=== PATIENT | female | born 1955 | race Caucasian/White ===

== ENCOUNTER 2016-11-09 11:39 | Observation (INO) | payer MEDICARE ==
[2016-11-09] MEDS ORDERED: Sodium Chloride 0.9% 1000 ML 1,000 ML IV STA (11:58)
[2016-11-09] MEDS ORDERED: Sodium Chloride 0.9% 1000 ML 1,000 ML ONE (12:03)
--- NOTE | 2016-11-09 12:06 | ERPHSYRPT ---
- History of Present Illness Time Seen by Provider: 11/09/16 12:01 Source: patient Exam Limitations: no limitations Patient Subjective Stated Complaint: PT REPORTS DIZZINESS BEGINNING MON- TINLGING TO BILATERAL HANDS BEGAN MONDAY-COUGH BEGINNING 4 DAYS AGO-REPORTS UNABLE TO CHECK BLOOD SUGAR AT HOME DUE TO BROKEN MACHINE-DECREASE IN APPETITE- REPORTS DIARRHEA-DENIES VOMITING-REPORTS NASUEA-PT REPORTS A SORE ON HER LEFT BIG TOE-NO DRAINAGE-REPORTS SWELLING ET PAIN TO BILATERAL KNEES Triage Nursing Assessment: PT PALE WARM ET DRY-A & O X 3-ANSWERING ALL QUESTIONS APPROPRIATELY-MOVING ALL EXTREMITES WITH EASE-PT OFF BALANCE UPON STANDING-PUPILS PERRL-RESP EASY ET NONLABORED-LUNGS CLEAR ET EQUAL-BOWEL SOUNDS HYPERACTIVE WITH NO TENDERNESS TO PALP-PT DENIES ABD PAIN-NO DRAINAGE OR REDNESS NOTED TO LEFT TOE AT THIS TIME Physician History: 61-year-old white female who arrives with complaints of feeling dizzy like the room spins spinning paresthesias in both hands cramping of both hands and cough symptoms since Monday 4 days ago. Patient apparently initially presented to [facility] but sent to the emergency room patient has had not had any fevers. Patient is able to move all extremities. She complains of tenderness in her right great toe. Past medical history includes diabetes, hypothyroidism, high blood pressure, depression Past surgical history includes tubal ligation Social history patient denies tobacco or alcohol use . Timing/Duration: day(s) (4 days) Severity: moderate Modifying Factors: Worsens With: cold therapy, eating, immobilization, medication, movement, rest, acetaminophen, ibuprofen Associated Symptoms: cough, loss of appetite, malaise, other (paresthesias and cramps bilateral hands), No nausea, No vomiting, No abdominal pain, No shortness of breath, No heartburn, No diaphoresis, No chills, No chest pain, No fever, No headaches, No rash, No syncope, No seizure, No weakness Allergies/Adverse Reactions: No Known Drug Allergies Allergy (Verified 11/09/16 11:52) Home Medications: Glimepiride 4 mg [Amaryl 4 mg] 4 mg PO DAILY 08/10/13 [History] Hydrocodone Bit/Acetaminophen [Hydrocodon-Acetaminophen 5-500] 1 each PO QID PRN PRN 08/10/13 [History] Levothyroxine Sodium 75 Mcg [Synthroid 75 Mcg] 88 mcg PO DAILY 08/10/13 [ History] Metoprolol Tartrate 25 mg [Lopressor 25MG Tab] 100 mg PO DAILY 08/10/13 [ History] Dulaglutide [Trulicity] 0.75 mg SQ WEEKLY 11/09/16 [History] Hx Tetanus, Diphtheria Vaccination/Date Given: Yes Hx Influenza Vaccination/Date Given: Yes (2015) Hx Pneumococcal Vaccination/Date Given: No Immunizations Up to Date: Yes - Review of Systems Constitutional: Malaise, No Fever, No Chills Eyes: No Symptoms, No Discharge, No Eye Pain, No Eye Redness, No Itchy, No Photophobia, No Tearing, No Vision Changes, No Double Vision, No Foreign Body Sensation Ears, Nose, & Throat: No Symptoms, No Ear Pain, No Ear Discharge, No Hearing Changes, No Tinnitus, No Nose Pain, No Nose Congestion, No Nose Discharge, No Sinus Drainage, No Epistaxis, No Mouth Pain, No Mouth Swelling, No Loose Teeth, No Throat Pain, No Throat Swelling, No Hoarse, No Painful Swallowing, No Snoring , No Stridor Respiratory: Cough, No Cyanosis, No Dyspnea, No Dyspnea on Exertion (HANSON), No Stridor, No Wheezing Cardiac: No Chest Pain, No Edema, No Syncope Abdominal/Gastrointestinal: Appetite Changes (decreased appetite), No Abdominal Pain, No Nausea, No Vomiting, No Diarrhea Genitourinary Symptoms: No Dysuria Musculoskeletal: Other (cramping both hands) Skin: Other (patient with pain in right great toe), No Rash Neurological: Dizziness, Parasthesia (paresthesias of both hands), Vertigo, No Focal Weakness, No Gait Changes, No Headache, No Irritability, No Lethargy, No Paralysis, No Seizure, No Sensory Changes, No Speech Changes, No Tics, No Tremors Psychological: No Symptoms Endocrine: No Symptoms All Other Systems: Reviewed and Negative - Past Medical History Pertinent Past Medical History: Yes Cardiac History: Hypertension Endocrine Medical History: Diabetes Type II, Hypothyroidism Psycho-Social History: Depression - Past Surgical History Past Surgical History: Yes Female Surgical History: Tubal Ligation - Social History Smoking Status: Never smoker Exposure to second hand smoke: No Drug Use: none Patient Lives Alone: Yes - Nursing Vital Signs Nursing Vital Signs: Initial Vital Signs Temperature 97.5 F Temperature Source Oral Pulse Rate 90 Respiratory Rate 18 Blood Pressure [] 170/81 Pain Intensity 0 - Physical Exam General Appearance: mild distress, other (well-developed well-nourished white female alert oriented 3 mild distress) Eye Exam: PERRL/EOMI, eyes nml inspection Ears, Nose, Throat Exam: normal ENT inspection, TMs normal, pharynx normal, moist mucous membranes Neck Exam: normal inspection, non-tender, supple, full range of motion Respiratory Exam: normal breath sounds, lungs clear, No respiratory distress Cardiovascular Exam: regular rate/rhythm, normal heart sounds, normal peripheral pulses Gastrointestinal/Abdomen Exam: soft, normal bowel sounds, No tenderness, No mass Back Exam: normal inspection, normal range of motion, No CVA tenderness, No vertebral tenderness Extremity Exam: normal inspection, normal range of motion, pelvis stable Neurologic Exam: alert, oriented x 3, cooperative, normal mood/affect, nml cerebellar function, nml station & gait, sensation nml, other (carboy filler equal and symmetrical 5 over 5 finger-nose within normal limits speech normal no pronator drift), No motor deficits, No sensory deficit Skin Exam: normal color, warm, dry, No rash Lymphatic Exam: No adenopathy SpO2 Interpretation: normal (97%) SpO2: 97 Oxygen Delivery: Room Air - Course Nursing assessment & vital signs reviewed: Yes EKG Interpreted by Me: RATE (84bpm), NORMAL AXIS, Other (EKG: Sinus arrhythmia 84 bpm, normal axis, no acute ST or T wave changes essentially normal EKG) - Radiology Exams Chest X-ray Interpretation: Discussed w/ radiologist, No Pneumonia, No Pneumothorax - CT Exams Head CT Interpretation: Discussed w/radiologist (head CT: No intracranial abnormalities para nasal sinus disease) Ordered Tests: Active Orders 24 hr Category Date Time Status Accucheck STAT Care 11/09/16 11:58 Active EKG-ER Only STAT Care 11/09/16 11:58 Active IV Insertion STAT Care 11/09/16 11:58 Active Orthostatic Vital Signs STAT Care 11/09/16 11:58 Active CHEST 1 VIEW (PORTABLE) Stat Exams 11/09/16 11:59 Completed HEAD WITHOUT CONTRAST [CT] Stat Exams 11/09/16 11:59 Completed CBC W DIFF Stat Lab 11/09/16 11:50 Completed CMP Stat Lab 11/09/16 11:50 Completed Lactic Acid Urgent Lab 11/09/16 12:08 Completed TROPONIN Stat Lab 11/09/16 11:50 Completed UA Stat Lab 11/09/16 11:59 Ordered VENOUS BLOOD GAS Urgent Lab 11/09/16 12:08 Completed Transfer Order Routine Transfer 11/09/16 13:26 Ordered Medication Summary Discontinued Medications Generic Name Dose Route Start Last Admin Trade Name Janes PRN Reason Stop Dose Admin Aspirin 162 mg 11/09/16 13:24 11/09/16 13:29 Baby Aspirin 81 Mg Chew PO 11/09/16 13:25 162 mg STAT ONE Administration Aspirin Confirm 11/09/16 13:27 Baby Aspirin 81 Mg Chew Administered 11/09/16 13:28 Dose 162 mg .ROUTE .STK-MED ONE Sodium Chloride 1,000 mls @ 999 mls/hr 11/09/16 11:58 11/09/16 12:07 Sodium Chloride 0.9% 1000 Ml IV 11/09/16 12:58 999 mls/hr .Q1H1M STA Administration Sodium Chloride Confirm 11/09/16 12:03 Sodium Chloride 0.9% 1000 Ml Administered 11/09/16 12:04 Dose 1,000 mls @ ud .ROUTE .STK-MED ONE Lab/Rad Data: Laboratory Result Diagrams 11/09/16 11:50 11/09/16 11:50 Laboratory Results 11/09/16 11/09/16 11/09/16 Range/Units 12:08 12:08 11:50 WBC (4.0-10.5) K/mm3 RBC (4.1-5.4) M/mm3 Hgb (12.0-16.0) gm/dl Hct (35-47) % MCV (78-100) fl MCH (26-32) pg MCHC (32-36) g/dl RDW (11.5-14.0) % Plt Count (150-450) K/mm3 MPV (6-9.5) fl Gran % (36.0-66.0) % Lymphocytes % (24.0-44.0) % Monocytes % (0.0-12.0) % Eosinophils % (0.00-5.0) % Basophils % (0.0-0.4) % Basophils # (0-0.4) VBG pH 7.40 (7.32-7.42) VBG pCO2 at Pat Temp 47 (42-55) mm/Hg VBG pO2 at Pat Temp 40 (25-40) mm/Hg VBG HCO3 29.1 H* (22-28) meq/L VBG O2 Sat (Jodi) 74.3 L (95-100) VBG Base Excess 3.5 H (-2.0-2.0) VBG Hemoglobin 13.4 VBG Carboxyhemoglobin 0.8 (0.0-6.9) % T HGB POC Potassium 3.7 (3.5-5.1) Sodium 139 (136-145) mEq/L Potassium 3.8 (3.5-5.1) mEq/L Chloride 102 (98-107) mEq/L Carbon Dioxide 25.8 (21-32) mEq/L Anion Gap 15.2 H (5-15) MEQ/L BUN 11 (9-20) mg/dL Creatinine 1.00 (0.55-1.30) mg/dl Estimated GFR 60 ML/MIN Glucose 150 H (70-110) MG/DL Lactic Acid 1.2 (0.4-2.0) Calcium 8.9 (8.5-10.1) mg/dL Total Bilirubin 0.3 (0.2-1.0) mg/dL AST 11 L (15-37) U/L ALT 13 (12-78) U/L Alkaline Phosphatase 90 (46-116) U/L Troponin I < 0.017 (0.000-0.056) ng/ml Serum Total Protein 7.3 (6.4-8.2) gm/dL Albumin 3.9 (3.4-5.0) g/dL 11/09/16 Range/Units 11:50 WBC 8.1 (4.0-10.5) K/mm3 RBC 4.27 (4.1-5.4) M/mm3 Hgb 13.1 (12.0-16.0) gm/dl Hct 39.9 (35-47) % MCV 93.4 (78-100) fl MCH 30.7 (26-32) pg MCHC 32.8 (32-36) g/dl RDW 11.8 (11.5-14.0) % Plt Count 178 (150-450) K/mm3 MPV 10.8 H (6-9.5) fl Gran % 50.4 (36.0-66.0) % Lymphocytes % 32.4 (24.0-44.0) % Monocytes % 12.5 H (0.0-12.0) % Eosinophils % 4.2 (0.00-5.0) % Basophils % 0.5 (0.0-0.4) % Basophils # 0.04 (0-0.4) VBG pH (7.32-7.42) VBG pCO2 at Pat Temp (42-55) mm/Hg VBG pO2 at Pat Temp (25-40) mm/Hg VBG HCO3 (22-28) meq/L VBG O2 Sat (Jodi) (95-100) VBG Base Excess (-2.0-2.0) VBG Hemoglobin VBG Carboxyhemoglobin (0.0-6.9) % T HGB POC Potassium (3.5-5.1) Sodium (136-145) mEq/L Potassium (3.5-5.1) mEq/L Chloride (98-107) mEq/L Carbon Dioxide (21-32) mEq/L Anion Gap (5-15) MEQ/L BUN (9-20) mg/dL Creatinine (0.55-1.30) mg/dl Estimated GFR ML/MIN Glucose (70-110) MG/DL Lactic Acid (0.4-2.0) Calcium (8.5-10.1) mg/dL Total Bilirubin (0.2-1.0) mg/dL AST (15-37) U/L ALT (12-78) U/L Alkaline Phosphatase (46-116) U/L Troponin I (0.000-0.056) ng/ml Serum Total Protein (6.4-8.2) gm/dL Albumin (3.4-5.0) g/dL - Progress Progress: improved Progress Note: 11/09/16 13:05 This is a 61-year-old white female with history of diabetes hypothyroidism high blood pressure depression she arrives with complaint of feeling dizzy she's been having paresthesias to bilateral hands cramp bilateral hands she states she 's had a cough 4 days. She apparently presented to [facility] however she was sent here patient was noted to be unsteady with her gait. Labs chest x-ray no acute changes head CT no acute changes EKG shows essentially normal EKG 84 bpm normal sinus rhythm. Patient states that she is feeling dizzy, she was noted to be unsteady on her feet by the nurses., Will discuss case with Dr. Pinon who is on-call for the patient's family physician Dr. Jarvis. 11/09/16 13:22 Case is discussed with Dr. Pinon will give patient aspirin 162 mg orally continue patient on IV fluids obtain serial neuro checks. Will place patient on observation telemetry - Departure Time of Disposition: 13:23 Departure Disposition: Observation Clinical Impression: Dizziness, Paresthesias, Gait disturbance Condition: Fair Critical Care Time: No Referrals: ARUN JARVIS [Primary Care Provider] -
[2016-11-09 12:10] LABS: VBG BASE EXCESS 3.5 (-2.0-2.0); VBG CARBOXYHEMOGLOBIN 0.8 % T HGB (0.0-6.9); VBG HCO3- 29.1 meq/L (22-28); VBG HEMOGLOBIN 13.4; VBG O2 SATURATION 74.3 (95-100); VBG POTASSIUM 3.7 (3.5-5.1); VBG pH 7.4 (7.32-7.42)
[2016-11-09 12:12] LABS: BASOPHIL % 0.5 % (0.0-0.4); Eosinophil % 4.2 % (0.00-5.0); Granulocytes % 50.4 % (36.0-66.0); Lymphocytes % 32.4 % (24.0-44.0); Mean Cell Volume 93.4 fl (78-100); Mean Corpuscular Hemoglobin 30.7 pg (26-32); Mean Platelet Volume 10.8 fl (6-9.5); Monocytes % 12.5 % (0.0-12.0); Platelet Count 178 K/mm3 (150-450); Red Blood Count 4.27 M/mm3 (4.1-5.4); Red Cell Distribution Width 11.8 % (11.5-14.0); White Blood Count 8.1 K/mm3 (4.0-10.5)
--- NOTE | 2016-11-09 12:33 | XRAY ---
Indication: Dizziness. Bilateral hand and feet numbness. Multiple contiguous axial images obtained through the head without contrast. Comparison: None There are bilateral basal ganglia physiologic calcifications. No acute intracranial hemorrhage, abnormal extra-axial fluid collection, or mass effect. Fourth ventricle is midline without hydrocephalus. Garcia-white matter differentiation preserved. Bony calvarium intact. Moderate mucosal thickening of both ethmoid sinuses with lesser degree in the sphenoid sinuses. Tiny right maxillary sinus fluid leveling. Mastoid air cells are clear. Impression: No acute intracranial abnormalities. Incidental paranasal sinus disease. CT DI 67.99
--- NOTE | 2016-11-09 12:35 | XRAY ---
Indication: Cough and dizziness. Comparison: None Portable chest demonstrates normal heart and lungs. Bony thorax intact.
[2016-11-09 12:40] LABS: ALBUMIN 3.9 g/dL (3.4-5.0); ALKALINE PHOSPHATASE 90 U/L (46-116); ANION GAP 15.2 MEQ/L (5-15); BILIRUBIN,TOTAL 0.3 mg/dL (0.2-1.0); BLOOD UREA NITROGEN 11 mg/dL (9-20); CHLORIDE 102 mEq/L (98-107); Carbon Dioxide 25.8 mEq/L (21-32); Glucose 150 MG/DL (70-110); Potassium 3.8 mEq/L (3.5-5.1); SGOT/AST 11 U/L (15-37); SGPT/ALT 13 U/L (12-78); SODIUM 139 mEq/L (136-145); Total Protein 7.3 gm/dL (6.4-8.2)
[2016-11-09 12:49] LABS: TROPONIN < 0.017 ng/ml (0.000-0.056)
[2016-11-09] MEDS ORDERED: BABY ASPIRIN 81 MG CHEW PO ONE (13:24)
[2016-11-09] MEDS ORDERED: BABY ASPIRIN 81 MG CHEW ONE (13:27)
[2016-11-09] MEDS ORDERED: ANTIVERT 25 MG PO PRN (14:13)
[2016-11-09] MEDS: Sodium Chloride 0.9% 1000 ML 1,000 ML IV SCH (14:28)
[2016-11-09] MEDS: NORCO 7.5/325 MG TAB PO SCH ×2 (16:00→22:03)
[2016-11-09 17:48] LABS: COMPLETE URINE MICROSCOPIC? NO; Collection Type CLEAN CATCH; Ph 5.5 (5-6)
[2016-11-09] MEDS ORDERED: ACETAMINOPHEN PO SCH (22:00)
[2016-11-09] MEDS ORDERED: HYDROCODONE PO SCH (22:00)
[2016-11-10] MEDS: Sodium Chloride 0.9% 1000 ML 1,000 ML IV SCH ×3 (00:08→22:22)
[2016-11-10 05:59] LABS: BASOPHIL % 0.6 % (0.0-0.4); Eosinophil % 6.2 % (0.00-5.0); Granulocytes % 48.1 % (36.0-66.0); Lymphocytes % 35.4 % (24.0-44.0); Mean Platelet Volume 10.6 fl (6-9.5); Monocytes % 9.7 % (0.0-12.0); Platelet Count 183 K/mm3 (150-450); Red Blood Count 3.72 M/mm3 (4.1-5.4); Red Cell Distribution Width 11.8 % (11.5-14.0); White Blood Count 6.9 K/mm3 (4.0-10.5)
[2016-11-10 06:05] LABS: Mean Corpuscular Hemoglobin 30.3 pg (26-32)
[2016-11-10 06:20] LABS: ALBUMIN 2.9 g/dL (3.4-5.0); ALKALINE PHOSPHATASE 73 U/L (46-116); BILIRUBIN,TOTAL 0.2 mg/dL (0.2-1.0); BLOOD UREA NITROGEN 11 mg/dL (9-20); CHLORIDE 109 mEq/L (98-107); Carbon Dioxide 27.7 mEq/L (21-32); Glucose 134 MG/DL (70-110); SGOT/AST 14 U/L (15-37); SGPT/ALT 15 U/L (12-78); SODIUM 144 mEq/L (136-145); Total Protein 5.6 gm/dL (6.4-8.2)
--- NOTE | 2016-11-10 08:32 | PCM.HP ---
History of Present Illness - Chief Complaint Chief Complaint: dizziness, gait disturbance History of Present Illness: is a 61 year old female pt of mine from [facility] who started having vertigo and loss of balance 5d ago. She also started having a cough with congestion. Came to ER last night and was admitted for observation. CT head without acute findings. States this morning she is not feeling as dizzy and can walk to the bathroom by herself. She did c/o some paresthesias bilat hands and feet. No slurred speech. She c/o intermittent L chest discomfort, tingling and sharp pain with some radiation to the L shoulder blade, unrelated to activity. She thought she felt a lump in the R breast recently. Has hx lump in L breast; last mammogram 10 yrs ago. She has no smoking history but was exposed to copious amounts of second hand smoke from childhood. - Review of Systems Constitutional: Fever (subjective) Respiratory: Cough Cardiac: Chest Pain, Palpitations Abdominal/Gastrointestinal: Diarrhea (last 2d ago), Appetite Changes Genitourinary Symptoms: Dysuria Musculoskeletal: Back Pain (chronic) Neurological: Dizziness, Parasthesia Psychological: No Suicidal Ideations All Other Systems: Reviewed and Negative Medications & Allergies Home Medications: Home Medication List Glimepiride 4 mg [Amaryl 4 mg] 4 mg PO DAILY 08/10/13 [History Confirmed 11/09/16] Dulaglutide [Trulicity] 0.75 mg SQ WEEKLY 11/09/16 [History Confirmed 11/09/16] Hydrocodone/Acetaminophen [Vicodin Es 7.5-300 mg Tablet] 1 tab PO TID 11/09/16 [ History Confirmed 11/09/16] Levothyroxine Sodium [Synthroid] 88 mcg PO DAILY 11/09/16 [History Confirmed ] Losartan Potassium 100 mg PO DAILY 11/09/16 [History Confirmed 11/09/16] Allergies/Adverse Reactions: Allergies Allergy/AdvReac Type Severity Reaction Status Date / Time No Known Drug Allergies Allergy Verified 11/09/16 11:52 - Past Medical History Past Medical History: Yes Neurological History: No Pertinent History Cardiac History: Hypertension Respiratory History: Asthma Endocrine Medical History: Diabetes Type II, Hypothyroidism GI Medical History: GERD History: No Pertinent History Pyscho-Social History: Depression Reproductive Disorders: No Pertinent History - Female History Are you now?: No - Past Surgical History Past Surgical History: Yes Neuro Surgical History: No Pertinent History Cardiac History: No Pertinent History Respiratory Surgery: No Pertinent History GI Surgical History: No Pertinent History Musculskeletal Surgical Hx: No Pertinent History Female Surgical History: Tubal Ligation - Social History Smoking Status: Never smoker Exposure to second hand smoke: No Alcohol: None Drug Use: none - Physical Exam Vital Signs: Vital Signs - 24 hr Temp Pulse Resp BP Pulse Ox 11/10/16 07:24 98.2 F 90 20 160/75 95 11/10/16 04:00 98.1 F 84 15 132/71 97 11/10/16 00:00 97.9 F 93 H 17 143/67 95 11/09/16 20:00 98.3 F 75 20 142/68 96 11/09/16 14:49 97.8 F 80 20 170/77 96 11/09/16 14:14 97.8 F 80 20 170/77 96 11/09/16 13:43 69 16 94 L 11/09/16 13:30 97 11/09/16 12:46 90 18 170/81 96 11/09/16 12:29 87 18 173/74 98 11/09/16 11:43 97.5 F 88 22 155/78 97 General Appearance: no apparent distress Neurologic Exam: alert, oriented x 3, cooperative Eye Exam: eyes nml inspection Ears, Nose, Throat Exam: moist mucous membranes Neck Exam: normal inspection, lymphadenopathy (cervical on R>L, nttp) Respiratory Exam: normal breath sounds, lungs clear, No crackles/rales, No rhonchi, No wheezing Cardiovascular Exam: regular rate/rhythm, normal heart sounds Gastrointestinal/Abdomen Exam: soft, No tenderness, No distention Additional Findings: 11/10/16 08:34 Breast exam: L breast ttp upper outer quadrant with diffuse approx 2x2 cm mass, mobile. No axillary or supraclavicular LAD bilat. R breast ttp upper outer quadrant. There is a BB sized firm mass inferior to nipple at 6 oclock. Results - Labs Lab/Micro Results: Accuchecks Date 11/10/16 Time 07:30 Accucheck Value: 124 Accucheck Value: 183 Accucheck Value: 145 Accucheck Value: 145 Lab Results-Last 24 Hours 11/09/16 11/10/16 11/10/16 Range/Units 17:30 05:06 05:06 WBC 6.9 (4.0-10.5) K/mm3 RBC 3.72 L (4.1-5.4) M/mm3 Hgb 11.3 L (12.0-16.0) gm/dl Hct 35.7 (35-47) % MCV 96.0 (78-100) fl MCH 30.3 (26-32) pg MCHC 31.7 L (32-36) g/dl RDW 11.8 (11.5-14.0) % Plt Count 183 (150-450) K/mm3 MPV 10.6 H (6-9.5) fl Gran % 48.1 (36.0-66.0) % Lymphocytes % 35.4 (24.0-44.0) % Monocytes % 9.7 (0.0-12.0) % Eosinophils % 6.2 H (0.00-5.0) % Basophils % 0.6 (0.0-0.4) % Basophils # 0.04 (0-0.4) Sodium 144 (136-145) mEq/L Potassium 5.0 (3.5-5.1) mEq/L Chloride 109 H (98-107) mEq/L Carbon Dioxide 27.7 (21-32) mEq/L Anion Gap 12.0 (5-15) MEQ/L BUN 11 (9-20) mg/dL Creatinine 0.80 (0.55-1.30) mg/dl Estimated GFR > 60 ML/MIN Glucose 134 H (70-110) MG/DL Calcium 8.0 L (8.5-10.1) mg/dL Total Bilirubin 0.2 (0.2-1.0) mg/dL AST 14 L (15-37) U/L ALT 15 (12-78) U/L Alkaline Phosphatase 73 (46-116) U/L Serum Total Protein 5.6 L (6.4-8.2) gm/dL Albumin 2.9 L (3.4-5.0) g/dL Ur Collection Type CLEAN CATCH Urine Color YELLOW (YELLOW) Urine Appearance CLEAR (CLEAR) Urine pH 5.5 (5-6) Ur Specific [place] 1.015 (1.005-1.025) Urine Protein NEGATIVE (Negative) Urine Glucose (UA) 100 (NEGATIVE) mg/dL Urine Ketones NEGATIVE (NEGATIVE) Urine Nitrite NEGATIVE (NEGATIVE) Urine Bilirubin NEGATIVE (NEGATIVE) Urine Urobilinogen 0.2 (0-1) mg/dL Urine WBC (Auto) NEGATIVE (NEGATIVE) Urine RBC (Auto) NEGATIVE (0-5) Benji/ul Specimen Received 11/09/16 1730 Accuchecks Date 11/10/16 Time 07:30 Accucheck Value: 124 Accucheck Value: 183 Accucheck Value: 145 Accucheck Value: 145 Assessment/Plan (1) Gait disturbance Current Visit: Yes Status: Acute Assessment & Plan: Much improved; I think secondary to dizziness related to sinusitis. Code(s): R26.9 - UNSPECIFIED ABNORMALITIES OF GAIT AND MOBILITY (2) Sinusitis Current Visit: Yes Status: Acute Assessment & Plan: Start pt on IV rocephin. Code(s): J32.9 - CHRONIC SINUSITIS, UNSPECIFIED (3) Bronchitis Current Visit: Yes Status: Acute Assessment & Plan: I think she likely has some COPD related to her second hand smoke exposure, so will treat as for pneumonia/COPD exacerbation. Code(s): J40 - BRONCHITIS, NOT SPECIFIED ACUTE OR CHRONIC (4) Breast mass Current Visit: Yes Status: Acute Assessment & Plan: Mammogram to be done very soon after discharge. Code(s): N63 - UNSPECIFIED LUMP IN BREAST (5) Hypertension Current Visit: Yes Status: Acute Assessment & Plan: will add lisinopril. Code(s): I10 - ESSENTIAL (PRIMARY) HYPERTENSION (6) Dizziness Current Visit: Yes Status: Acute Assessment & Plan: Improved; likely due to sinusitis. CT head no acute changes. The accompanying paresthesias were not indicative of cerebral ischemia. Code(s): R42 - DIZZINESS AND GIDDINESS (7) Chest pain Current Visit: Yes Status: Chronic Assessment & Plan: will do outpatient stress test. check one troponin here. Code(s): R07.9 - CHEST PAIN, UNSPECIFIED
[2016-11-10] MEDS ORDERED: Klonopin 0.5 MG PO PRN (08:45)
[2016-11-10] MEDS: SYNTHROID 88 MCG PO SCH (09:06)
[2016-11-10] MEDS: ROCEPHIN 1 Gm-D5w 50 ml Bag** 50 ML IV SCH (09:07)
[2016-11-10] MEDS ORDERED: SYNTHROID 75 MCG PO SCH (10:00)
[2016-11-10] MEDS ORDERED: Lopressor 25MG Tab PO SCH (10:00)
[2016-11-10] MEDS ORDERED: Lopressor 50 MG PO SCH (10:00)
[2016-11-10] MEDS: NORCO 7.5/325 MG TAB PO SCH ×3 (10:21→21:56)
[2016-11-10] MEDS: Zithromax 500 MG/ 250 ML NaCl Premix 250 ML IV SCH (10:21)
[2016-11-10] MEDS: Cozaar 50 MG PO SCH (10:22)
[2016-11-10] MEDS: ECOTRIN 81 MG PO SCH (10:22)
[2016-11-10] MEDS: NovoLOG Insulin SQ PRN ×2 (16:14→21:58)
--- NOTE | 2016-11-11 08:01 | PCM.DS ---
Discharge Summary Date of Admission: 11/09/16 14:10 Admitting Physician: ANDREW LO Primary Care Provider: ARUN WAITE Allergies Allergies No Known Drug Allergies Allergy (Verified 11/09/16 11:52) Hospital Summary - Hospital Course Hospital Course: She is feeling much better. Cough is productive. Dizziness is completely resolved. - Vitals & Intake/Output Vital Signs: Vital Signs Temperature 98.2 F 11/11/16 04:00 Pulse Rate 77 11/11/16 04:00 Respiratory Rate 18 11/11/16 04:00 Blood Pressure 118/58 11/11/16 04:00 O2 Sat by Pulse Oximetry 96 11/11/16 04:00 Intake & Output: Intake & Output 11/08/16 11/09/16 11/10/16 11/11/16 11:59 11:59 11:59 11:59 Intake Total 2428 3097 Output Total 600 700 Balance 1828 2397 Weight 59.988 kg - Lab Result Diagrams: 11/10/16 05:06 11/10/16 05:06 Lab Results-Last 24 Hrs: Accuchecks Date 11/10/16 Date 11/10/16 Date 11/10/16 Time 22:00 Time 16:30 Time 11:30 Accucheck Value: 205 Accucheck Value: 235 Accucheck Value: 180 Lab Results-Last 24 Hours 11/10/16 Range/Units 05:00 Troponin I < 0.017 (0.000-0.056) ng/ml Micro Results-Entire Visit: Accuchecks Date 11/10/16 Date 11/10/16 Date 11/10/16 Time 22:00 Time 16:30 Time 11:30 Accucheck Value: 205 Accucheck Value: 235 Accucheck Value: 180 - Procedures and Test Procedures and Tests throughout Hospitalization: Therapy Orders & Screens 11/10/16 08:46 STRESS TEST [Schedule Outpt Stress Test] Routine Comment: Diagnosis: chest pain Schedule Outpt Stress Test: Cardiolyte Stress Test Cardiolite Stress Test: Cardiolite Treadmill Discharge Exam General Appearance: no apparent distress Neurologic Exam: alert, oriented x 3, cooperative Skin Exam: normal color, warm, dry Respiratory Exam: normal breath sounds, lungs clear, No crackles/rales, No rhonchi, No wheezing Cardiovascular Exam: regular rate/rhythm, normal heart sounds Extremity Exam: No pedal edema, No swelling Back Exam: normal inspection Final Diagnosis/Problem List - Final Discharge Diagnosis/Problem (1) Sinusitis Current Visit: Yes Status: Acute (2) Bronchitis Current Visit: Yes Status: Acute Assessment & Plan: Treating as for COPD exacerbation. Get IV abx today then d/c home on po abx. (3) Breast mass Current Visit: Yes Status: Acute Assessment & Plan: getting op mammogram. (4) Hypertension Current Visit: Yes Status: Acute Assessment & Plan: BP much better now; home on home losartan. (5) Dizziness Current Visit: Yes Status: Acute Assessment & Plan: resolved. due to sinusitis. (6) Chest pain Current Visit: Yes Status: Chronic Assessment & Plan: outpatient stress test scheduled. (7) Gait disturbance Current Visit: Yes Status: Resolved Assessment & Plan: resolved. (8) Diabetes Current Visit: Yes Status: Acute Assessment & Plan: a1c is 8.4. Will f/u in office; pt to keep a log of blood sugars BID until then. - Discharge Disposition: Home, Self-Care Condition: Good Prescriptions: New Amoxicillin/Potassium Clav [Augmentin 875-125 Tablet] 875 mg PO BID #20 tablet Levothyroxine Sodium 88 Mcg [Synthroid 88 Mcg] 88 mcg PO DAILY #30 tablet Continue Glimepiride 4 mg [Amaryl 4 mg] 4 mg PO DAILY Dulaglutide [Trulicity] 0.75 mg SQ WEEKLY Hydrocodone/Acetaminophen [Vicodin Es 7.5-300 mg Tablet] 1 tab PO TID Losartan Potassium 100 mg PO DAILY Levothyroxine Sodium [Synthroid] 88 mcg PO DAILY Additional Instructions: Outpatient Stress Test is scheduled at [facility] on 11/18/16@0630 a.m. Mammogram on 11/16/16 at 1:00. Follow up with: ARUN WAITE [Primary Care Provider] - 11/22/16 1:15 pm Forms: Patient Portal Information
[2016-11-11] MEDS: ROCEPHIN 1 Gm-D5w 50 ml Bag** 50 ML IV SCH (08:19)
[2016-11-11] MEDS: SYNTHROID 88 MCG PO SCH (08:22)
[2016-11-11] MEDS: Zithromax 500 MG/ 250 ML NaCl Premix 250 ML IV SCH (09:12)
[2016-11-11] MEDS: NORCO 7.5/325 MG TAB PO SCH (09:14)
[2016-11-11] MEDS: ECOTRIN 81 MG PO SCH (09:15)
[2016-11-11] MEDS: Cozaar 50 MG PO SCH (09:15)
[2016-11-11 12:37] VITALS: BP 142/68; PULSE 88; O2SAT 94
== END 2016-11-11 11:35 | disposition home or self-care (01) ==
LOC: ED 11:39 → MED SURG 14:10
PROVIDERS: ADMIT Family Medicine; ATTEND Family Medicine
DX: J01.90 Acute sinusitis, unspecified (principal); J40 Bronchitis, not specified as acute or chronic; N63 Unspecified lump in breast; I10 Essential (primary) hypertension; R42 Dizziness and giddiness; R07.9 Chest pain, unspecified; R26.89 Other abnormalities of gait and mobility; E11.9 Type 2 diabetes mellitus without complications; E03.9 Hypothyroidism, unspecified; K21.9 Gastro-esophageal reflux disease without esophagitis; F32.9 Major depressive disorder, single episode, unspecified; J45.909 Unspecified asthma, uncomplicated; Z79.899 Other long term (current) drug therapy
CPT/HCPCS: 36000; 36415; 70450; 71010; 80053; 81002; 82805; 82962; 83036; 83605; 84484; 85025; 93005; 93268; 96360; 99284; G0378; J0456; J0696

== ENCOUNTER 2021-02-23 11:23 | Observation (INO) | payer MEDICARE ==
[2021-02-23 14:38] LABS: Absolute Neutrophil Ct (ANC) 4.12 (1.4-6.9); BASOPHIL % 0.5 % (0.0-0.4); Basophil (Absolute #) 0.04 (0-0.4); Eosinophil % 2.7 % (0.00-5.0); Hematocrit 37.3 % (35-47); Hemoglobin 11.9 gm/dl (12.0-16.0); Lymphocyte (Absolute #) 2.54 (1.0-4.6); Lymphocytes % 33.9 % (24.0-44.0); Mean Cell Volume 96.1 fl (78-100); Mean Corpuscular Hemoglobin 30.7 pg (26-32); Mean Corpuscular Hgb Concent. 31.9 g/dl (32-36); Monocyte (Absolute #) 0.59 (0.0-1.3); Monocytes % 7.9 % (0.0-12.0); Platelet Count 245 K/mm3 (150-450); Red Blood Count 3.88 M/mm3 (4.1-5.4); Red Cell Distribution Width 11.4 % (11.5-14.0); White Blood Count 7.5 K/mm3 (4.0-10.5)
[2021-02-23] MEDS ORDERED: SYNTHROID 125 MCG PO SCH (15:00)
[2021-02-23] MEDS: Benicar 20 MG PO SCH (15:06)
[2021-02-23] MEDS: ENOXAPARIN SODIUM SQ SCH ×2 (15:06→15:22)
[2021-02-23] MEDS: Glucophage 500 MG PO SCH ×2 (15:06→21:51)
[2021-02-23 15:32] LABS: ANION GAP 11.1 MEQ/L (5-15); BILIRUBIN,TOTAL 0.4 mg/dL (0.2-1.3); Calcium 9.6 mg/dL (8.4-10.2); Creatinine 1 1.07 mg/dL (0.52-1.04); EST GLOMERULAR FILTRATION RATE 54.5 ML/MIN; NT PRO BNP 65.2 pg/mL (0-900); Potassium 4.8 mmol/L (3.5-5.1); Risk Ratio 2.3; TSH, 3RD Generation 0.018 mIU/L (0.47-4.68); Total Protein 6.5 g/dL (6.3-8.2)
[2021-02-23] MEDS: Sodium Chloride 0.9% 1000 ML 1,000 ML IV SCH (16:33)
[2021-02-23] MEDS: Protonix 40MG Tablet PO SCH (21:50)
[2021-02-23] MEDS: DESYREL 50 MG PO SCH (21:50)
[2021-02-23] MEDS: Pepcid 20 MG PO SCH (21:50)
[2021-02-23] MEDS: ZOCOR 20MG PO SCH (21:50)
[2021-02-23] MEDS ORDERED: NON-FORMULARY ITEM (Omeprazole [Omeprazole] 40 MG) PO SCH (22:00)
[2021-02-23] MEDS ORDERED: NON-FORMULARY ITEM (Famotidine [Pepcid] 40 MG) PO SCH (22:00)
[2021-02-23] MEDS ORDERED: LIPITOR 40MG PO SCH (22:00)
--- NOTE | 2021-02-23 22:28 | XRAY ---
Indication: Decreased renal function. Two-dimensional renal sonogram performed. Comparison: None Both kidneys normal in reniform shape with normal color perfusion. Right kidney measures 8.1 x 4.5 x 4.4 cm and the left measures 8.6 x 4.7 x 3.3 cm. No focal solid/cystic renal mass or hydronephrosis. Cortical medullary differentiation preserved without cortical thinning. Mildly distended urinary bladder grossly unremarkable. Ureteral jets not seen within the allotted exam time. Impression: Negative renal sonogram.
[2021-02-24] MEDS: Sodium Chloride 0.9% 1000 ML 1,000 ML IV SCH (04:34)
[2021-02-24] MEDS: Glucophage 500 MG PO SCH ×2 (07:53→11:29)
[2021-02-24] MEDS: AMARYL 4 MG PO SCH (07:53)
[2021-02-24] MEDS: Amaryl 2 MG PO SCH (07:53)
[2021-02-24] MEDS ORDERED: TYLENOL EXTRA STRENGTH 500 MG PO PRN (09:38)
[2021-02-24] MEDS: ENOXAPARIN SODIUM SQ SCH (09:48)
[2021-02-24] MEDS: Benicar 20 MG PO SCH (09:48)
[2021-02-24] MEDS ORDERED: LEVOTHYROXINE SODIUM 125 MCG PO SCH (10:00)
[2021-02-24] MEDS ORDERED: OLMESARTAN MEDOXOMIL 40 MG PO SCH (10:00)
--- NOTE | 2021-02-24 12:02 | PCM.NOTE ---
Date and Time: 02/24/21 1202 OBJECTIVE DATA Vital Signs: Vital Signs - 24 hr Temp Pulse Resp BP Pulse Ox 02/24/21 07:51 98.3 F 83 16 139/67 93 L 02/24/21 04:51 97.7 F 77 18 131/59 94 L 02/24/21 04:00 16 02/24/21 00:35 98.5 F 75 16 137/63 95 02/24/21 00:00 18 02/23/21 20:00 18 02/23/21 19:49 98.2 F 94 H 18 150/65 96 02/23/21 16:09 98.2 F 83 16 167/74 97 02/23/21 13:57 98.6 F 86 20 196/86 96 02/23/21 13:28 98.6 F 86 20 196/86 96 Pain Assessment - Last Documented Pain Intensity 8 Pain Scale Used 0-10 Pain Scale Intake and Output: Intake & Output 02/22/21 02/23/21 02/24/21 02/25/21 11:59 11:59 11:59 11:59 Intake Total 1966 Output Total 200 Balance 1766 Weight 58.4 kg Lab Results: Lab Results-Last 24 Hours 02/23/21 02/23/21 02/23/21 Range/Units 13:28 14:24 14:24 WBC 7.5 (4.0-10.5) K/mm3 RBC 3.88 L (4.1-5.4) M/mm3 Hgb 11.9 L (12.0-16.0) gm/dl Hct 37.3 (35-47) % MCV 96.1 (78-100) fl MCH 30.7 (26-32) pg MCHC 31.9 L (32-36) g/dl RDW 11.4 L (11.5-14.0) % Plt Count 245 (150-450) K/mm3 MPV 10.0 (7.5-11.0) fl Gran % 55.0 (36.0-66.0) % Eos # (Auto) 0.20 (0-0.5) Absolute Lymphs (auto) 2.54 (1.0-4.6) Absolute Monos (auto) 0.59 (0.0-1.3) Lymphocytes % 33.9 (24.0-44.0) % Monocytes % 7.9 (0.0-12.0) % Eosinophils % 2.7 (0.00-5.0) % Basophils % 0.5 (0.0-0.4) % Absolute Granulocytes 4.12 (1.4-6.9) Basophils # 0.04 (0-0.4) D-Dimer (215-500) ng/mL Sodium 137 (137-145) mmol/L Potassium 4.8 (3.5-5.1) mmol/L Chloride 101 (98-107) mmol/L Carbon Dioxide 30 (22-30) mmol/L Anion Gap 11.1 (5-15) MEQ/L BUN 18 H (7-17) mg/dL Creatinine 1.07 H (0.52-1.04) mg/dL Estimated GFR 54.5 ML/MIN Glucose 164 H (74-106) mg/dL POC Glucometer 170 H (74 to 106) mg/dL Calcium 9.6 (8.4-10.2) mg/dL Total Bilirubin 0.40 (0.2-1.3) mg/dL AST 19 (14-36) U/L ALT 14 (0-35) U/L Alkaline Phosphatase 68 (38-126) U/L Troponin I (0.000-0.034) ng/mL NT-Pro-B Natriuret Pep 65.2 (0-900) pg/mL Serum Total Protein 6.5 (6.3-8.2) g/dL Albumin 4.0 (3.5-5.0) g/dL Triglycerides 91 (30-150) mg/dL Cholesterol 123 (50-200) mg/dL LDL Cholesterol 58 (30-100) mg/dL HDL Cholesterol 54 (40-60) mg/dL Heart Disease Risk Ratio 2.3 TSH 3rd Generation 0.018 L (0.47-4.68) mIU/L 02/23/21 02/23/21 02/23/21 Range/Units 14:24 14:24 21:18 WBC (4.0-10.5) K/mm3 RBC (4.1-5.4) M/mm3 Hgb (12.0-16.0) gm/dl Hct (35-47) % MCV (78-100) fl MCH (26-32) pg MCHC (32-36) g/dl RDW (11.5-14.0) % Plt Count (150-450) K/mm3 MPV (7.5-11.0) fl Gran % (36.0-66.0) % Eos # (Auto) (0-0.5) Absolute Lymphs (auto) (1.0-4.6) Absolute Monos (auto) (0.0-1.3) Lymphocytes % (24.0-44.0) % Monocytes % (0.0-12.0) % Eosinophils % (0.00-5.0) % Basophils % (0.0-0.4) % Absolute Granulocytes (1.4-6.9) Basophils # (0-0.4) D-Dimer < 215 L (215-500) ng/mL Sodium (137-145) mmol/L Potassium (3.5-5.1) mmol/L Chloride (98-107) mmol/L Carbon Dioxide (22-30) mmol/L Anion Gap (5-15) MEQ/L BUN (7-17) mg/dL Creatinine (0.52-1.04) mg/dL Estimated GFR ML/MIN Glucose (74-106) mg/dL POC Glucometer 132 H (74 to 106) mg/dL Calcium (8.4-10.2) mg/dL Total Bilirubin (0.2-1.3) mg/dL AST (14-36) U/L ALT (0-35) U/L Alkaline Phosphatase (38-126) U/L Troponin I < 0.012 (0.000-0.034) ng/mL NT-Pro-B Natriuret Pep (0-900) pg/mL Serum Total Protein (6.3-8.2) g/dL Albumin (3.5-5.0) g/dL Triglycerides (30-150) mg/dL Cholesterol (50-200) mg/dL LDL Cholesterol (30-100) mg/dL HDL Cholesterol (40-60) mg/dL Heart Disease Risk Ratio TSH 3rd Generation (0.47-4.68) mIU/L 02/24/21 02/24/21 Range/Units 07:37 11:10 WBC (4.0-10.5) K/mm3 RBC (4.1-5.4) M/mm3 Hgb (12.0-16.0) gm/dl Hct (35-47) % MCV (78-100) fl MCH (26-32) pg MCHC (32-36) g/dl RDW (11.5-14.0) % Plt Count (150-450) K/mm3 MPV (7.5-11.0) fl Gran % (36.0-66.0) % Eos # (Auto) (0-0.5) Absolute Lymphs (auto) (1.0-4.6) Absolute Monos (auto) (0.0-1.3) Lymphocytes % (24.0-44.0) % Monocytes % (0.0-12.0) % Eosinophils % (0.00-5.0) % Basophils % (0.0-0.4) % Absolute Granulocytes (1.4-6.9) Basophils # (0-0.4) D-Dimer (215-500) ng/mL Sodium (137-145) mmol/L Potassium (3.5-5.1) mmol/L Chloride (98-107) mmol/L Carbon Dioxide (22-30) mmol/L Anion Gap (5-15) MEQ/L BUN (7-17) mg/dL Creatinine (0.52-1.04) mg/dL Estimated GFR ML/MIN Glucose (74-106) mg/dL POC Glucometer 112 H 147 H (74 to 106) mg/dL Calcium (8.4-10.2) mg/dL Total Bilirubin (0.2-1.3) mg/dL AST (14-36) U/L ALT (0-35) U/L Alkaline Phosphatase (38-126) U/L Troponin I (0.000-0.034) ng/mL NT-Pro-B Natriuret Pep (0-900) pg/mL Serum Total Protein (6.3-8.2) g/dL Albumin (3.5-5.0) g/dL Triglycerides (30-150) mg/dL Cholesterol (50-200) mg/dL LDL Cholesterol (30-100) mg/dL HDL Cholesterol (40-60) mg/dL Heart Disease Risk Ratio TSH 3rd Generation (0.47-4.68) mIU/L Radiology Exams: Radiology Procedures Category Date Time Status ECHO W/2D AND DOPPLER [US] Routine Exams 02/23/21 15:22 Taken Renal Ultrasound [KIDNEY] [US] Urgent Exams 02/23/21 16:07 Completed THYROID [US] Routine Exams 02/24/21 09:38 Taken
--- NOTE | 2021-02-24 12:29 | XRAY ---
Exam: Thyroid ultrasound from 02/24/2021. Comparison: Thyroid ultrasound from 04/29/2013. Indication: 65-year-old female with neck swallowing, difficulty swallowing. Findings: The right lobe of thyroid gland measures 1.3 cm x 1.1 cm x 0.7 cm. The left lobe of the thyroid gland measured 1.4 cm x 0.6 cm x 0.5 cm. The staff technologist stated she had difficulty assessing the thyroid gland acoustical architecture due to its small size. No obvious thyroid mass is seen. No abnormal posterior shadowing is seen. The isthmus measured 0.1 cm in AP dimension. No isthmus mass or nodule is seen. Impression: 1. The thyroid gland appears relatively small, as discussed above. No gross thyroid mass or thyroid nodules are seen.
--- NOTE | 2021-02-24 12:51 | ECHO ---
ADDENDUM: This is a redictation because the original study only had 16 images and this study has 49 images. DATE OF PROCEDURE: 02/23/2021 CLINICAL INFORMATION: Intermittent chest pain and dyspnea. The M-mode 2D, and Doppler echocardiogram including color flow Doppler shows the left ventricle is normal in size at 4.3 cm. There is no thrombus present. The septal wall thickness is 0.9 cm. The left ventricular posterior wall thickness with the dimension of 1.0 cm. There is normal contractility of the left ventricle. The ejection fraction is calculated to be 63%. The right ventricle is normal. The left atrium is 2.7 cm and normal in size. The interatrial septum is intact. The right atrium is normal. The aortic valve opens well. It is trileaflet. There is no aortic regurgitation. There is mitral valve leaflet thickening. There is mild mitral regurgitation present. There is mild tricuspid regurgitation. The right ventricular systolic pressure is normal at 26 mm of Mercury. The pulmonic valve is not well visualized. The aortic root is normal at 2.8 cm. There is no pericardial effusion present. IMPRESSION: 1) NORMAL CONTRACTILITY OF THE LEFT VENTRICLE. 2) MILD TRICUSPID REGURGITATION. 3) NORMAL RIGHT VENTRICULAR SYSTOLIC PRESSURE. 4) MILD MITRAL REGURGITATION. 5) POSSIBLE IMPAIRED LEFT VENTRICULAR RELAXATION. 6) THE MITRAL VALVE E TO A INFLOW VELOCITY RATIO IS DECREASED AT 0.86.
[2021-02-24 13:27] LABS: BASOPHIL % 0.5 % (0.0-0.4); Basophil (Absolute #) 0.04 (0-0.4); Eosinophil % 2.5 % (0.00-5.0); Hematocrit 35.9 % (35-47); Hemoglobin 11.5 gm/dl (12.0-16.0); Lymphocyte (Absolute #) 2.88 (1.0-4.6); Lymphocytes % 35.6 % (24.0-44.0); Mean Cell Volume 96.8 fl (78-100); Mean Platelet Volume 10.4 fl (7.5-11.0); Monocyte (Absolute #) 0.58 (0.0-1.3); Monocytes % 7.2 % (0.0-12.0); Neutrophil % 54.2 % (36.0-66.0); Platelet Count 219 K/mm3 (150-450); Red Blood Count 3.71 M/mm3 (4.1-5.4); Red Cell Distribution Width 11.4 % (11.5-14.0); White Blood Count 8.1 K/mm3 (4.0-10.5)
--- NOTE | 2021-02-24 14:49 | XRAY ---
Exam: CT of the head without and with IV contrast from 02/24/2021. Total DLP: 1823.13 mGy-cm Comparison: CT of the head without IV contrast from 11/09/2016. Indication: 65-year-old female with persistent headaches and dizziness for the past 6 months. Technique: Non-IV contrast axial images were obtained through the brain. Subsequently, the patient was given 80 cc of Isovue-370 contrast intravenously and post IV contrast axial images were obtained through the brain. Reconstructed coronal and sagittal images were created from the post-IV contrast portion of the study. Findings: The ventricles appear within normal limits of size with the left lateral ventricle appearing slightly larger than the right lateral ventricle representing no change. No focal mass effect or midline shift is seen. I again note dense bilateral basal ganglia calcifications representing no change. There is no evidence of acute intracranial bleed or abnormal extra-axial fluid collection. Some subtle bilateral periventricular and subcortical white matter changes are seen, likely reflecting chronic small vessel ischemic disease. The post-IV contrast study reveals no enhancing mass. There is other significant parenchymal enhancement. I see no evidence of aneurysm about the [place] of [place]. Faint vascular calcification is seen within the carotid siphons. The calvarium of the skull appears intact. There is some minimal mucosal thickening within the ethmoid sinus complex which has decreased as compared to 11/09/2016. I also note minimal mucosal thickening within the inferior aspect of the right maxillary sinus. The sphenoid sinus and frontal sinuses appear clear. The mastoid air cells are clear without effusion. The orbits appear unremarkable. Impression: 1. I see no evidence of acute intracranial bleed, enhancing mass, or other brain parenchymal abnormality. I again see bilateral basal ganglia calcifications. 2. Previous paranasal sinus disease on 11/09/2016 demonstrates improvement.
[2021-02-24 15:06] LABS: ALBUMIN 3.6 g/dL (3.5-5.0); ANION GAP 13.8 MEQ/L (5-15); BILIRUBIN,TOTAL 0.4 mg/dL (0.2-1.3); Calcium 8.8 mg/dL (8.4-10.2); Creatinine 1 1.2 mg/dL (0.52-1.04); EST GLOMERULAR FILTRATION RATE 47.8 ML/MIN; FREE TRIODOTHYRONINE 4.22 pg/mL (2.77-5.27); Folate (Folic Acid) 12.4 ng/mL (2.76 - >20); MAGNESIUM 1.6 mg/dL (1.6-2.3); Potassium 5.1 mmol/L (3.5-5.1); Total Protein 5.9 g/dL (6.3-8.2)
[2021-02-24] MEDS: ZOCOR 20MG PO SCH (21:26)
[2021-02-24] MEDS: Pepcid 20 MG PO SCH (21:26)
[2021-02-24] MEDS: DESYREL 50 MG PO SCH (21:26)
[2021-02-24] MEDS: Protonix 40MG Tablet PO SCH (21:26)
[2021-02-25 07:23] VITALS: BP 147/67; PULSE 80; O2SAT 93
[2021-02-25] MEDS: AMARYL 4 MG PO SCH (09:01)
[2021-02-25] MEDS: Amaryl 2 MG PO SCH (09:02)
--- NOTE | 2021-02-25 10:22 | PCM.DS ---
Discharge Summary Date of Admission: 02/23/21 13:12 Date of Discharge: 02/25/2021 Admitting Physician: FUENTES RODRIGUEZ MD Primary Care Provider: ARUN MEDEIROS Allergies Allergies No Known Drug Allergies Allergy (Verified 11/09/16 11:52) Hospital Summary - Hospital Course Hospital Course: 65 yr old female directed admitted from clinic for reports of intermittent chest pain near syncope and dizziness. Patient was directly admitted to the hospital for further workup. She had trops ekg labs echo and CT of head. She was found to be severely hyperthyroid. Her thyroid medication was held to help correct her levels. She did develop hypertensive urgency while in the hospital. She was monitored and this appeared to resolve after being given medication for BHATT. Patient was evaluated by PT and they did not note any additional assistance patient would need at home for ambulation. Patient's symptoms were improved and it was felt patient could discharge to home with plans to follow up as outpatient. We will get additional cardiac workup. - Vitals & Intake/Output Vital Signs: Vital Signs Temperature 98.3 F 02/25/21 07:23 Pulse Rate 80 02/25/21 07:23 Respiratory Rate 16 02/25/21 08:00 Blood Pressure 147/67 02/25/21 07:23 O2 Sat by Pulse Oximetry 93 L 02/25/21 07:23 Intake & Output: Intake & Output 02/22/21 02/23/21 02/24/21 02/25/21 11:59 11:59 11:59 11:59 Intake Total 1966 1662 Output Total 200 Balance 1766 1662 Weight 58.4 kg - Lab Result Diagrams: 02/24/21 13:26 02/24/21 13:26 Lab Results-Last 24 Hrs: Lab Results-Last 24 Hours 02/24/21 02/24/21 02/24/21 Range/Units 11:10 13:26 13:26 WBC 8.1 (4.0-10.5) K/mm3 RBC 3.71 L (4.1-5.4) M/mm3 Hgb 11.5 L (12.0-16.0) gm/dl Hct 35.9 (35-47) % MCV 96.8 (78-100) fl MCH 31.0 (26-32) pg MCHC 32.0 (32-36) g/dl RDW 11.4 L (11.5-14.0) % Plt Count 219 (150-450) K/mm3 MPV 10.4 (7.5-11.0) fl Gran % 54.2 (36.0-66.0) % Eos # (Auto) 0.20 (0-0.5) Absolute Lymphs (auto) 2.88 (1.0-4.6) Absolute Monos (auto) 0.58 (0.0-1.3) Lymphocytes % 35.6 (24.0-44.0) % Monocytes % 7.2 (0.0-12.0) % Eosinophils % 2.5 (0.00-5.0) % Basophils % 0.5 (0.0-0.4) % Absolute Granulocytes 4.40 (1.4-6.9) Basophils # 0.04 (0-0.4) Sodium 134 L (137-145) mmol/L Potassium 5.1 (3.5-5.1) mmol/L Chloride 103 (98-107) mmol/L Carbon Dioxide 23 (22-30) mmol/L Anion Gap 13.8 (5-15) MEQ/L BUN 19 H (7-17) mg/dL Creatinine 1.20 H (0.52-1.04) mg/dL Estimated GFR 47.8 ML/MIN Glucose 154 H (74-106) mg/dL POC Glucometer 147 H (74 to 106) mg/dL Calcium 8.8 (8.4-10.2) mg/dL Magnesium 1.6 (1.6-2.3) mg/dL Total Bilirubin 0.40 (0.2-1.3) mg/dL AST 19 (14-36) U/L ALT 14 (0-35) U/L Alkaline Phosphatase 61 (38-126) U/L Serum Total Protein 5.9 L (6.3-8.2) g/dL Albumin 3.6 (3.5-5.0) g/dL Folic Acid 12.4 (2.76 - >20) ng/mL Free T3 pg/mL 4.22 (2.77-5.27) pg/mL 02/24/21 02/24/21 02/25/21 Range/Units 16:25 21:07 07:09 WBC (4.0-10.5) K/mm3 RBC (4.1-5.4) M/mm3 Hgb (12.0-16.0) gm/dl Hct (35-47) % MCV (78-100) fl MCH (26-32) pg MCHC (32-36) g/dl RDW (11.5-14.0) % Plt Count (150-450) K/mm3 MPV (7.5-11.0) fl Gran % (36.0-66.0) % Eos # (Auto) (0-0.5) Absolute Lymphs (auto) (1.0-4.6) Absolute Monos (auto) (0.0-1.3) Lymphocytes % (24.0-44.0) % Monocytes % (0.0-12.0) % Eosinophils % (0.00-5.0) % Basophils % (0.0-0.4) % Absolute Granulocytes (1.4-6.9) Basophils # (0-0.4) Sodium (137-145) mmol/L Potassium (3.5-5.1) mmol/L Chloride (98-107) mmol/L Carbon Dioxide (22-30) mmol/L Anion Gap (5-15) MEQ/L BUN (7-17) mg/dL Creatinine (0.52-1.04) mg/dL Estimated GFR ML/MIN Glucose (74-106) mg/dL POC Glucometer 96 172 H 163 H (74 to 106) mg/dL Calcium (8.4-10.2) mg/dL Magnesium (1.6-2.3) mg/dL Total Bilirubin (0.2-1.3) mg/dL AST (14-36) U/L ALT (0-35) U/L Alkaline Phosphatase (38-126) U/L Serum Total Protein (6.3-8.2) g/dL Albumin (3.5-5.0) g/dL Folic Acid (2.76 - >20) ng/mL Free T3 pg/mL (2.77-5.27) pg/mL Micro Results-Entire Visit: Accuchecks Date 02/25/21 Date 02/24/21 Date 02/24/21 - Radiology Exams Ordered Rad Exams-Entire Visit: Radiology Procedures Category Date Time Status ECHO W/2D AND DOPPLER [US] Routine Exams 02/23/21 15:22 Draft HEAD W/WO CONTRAST [CT] Routine Exams 02/24/21 12:36 Completed Renal Ultrasound [KIDNEY] [US] Urgent Exams 02/23/21 16:07 Completed THYROID [US] Routine Exams 02/24/21 09:38 Completed - Procedures and Test Procedures and Tests throughout Hospitalization: Therapy Orders & Screens 02/23/21 13:54 EKG ROUTINE Comment: Diagnosis: Intermittent chest pain near syncope and lower leg edema 02/24/21 12:47 PT Eval & Treat ( Order) ONCE Reason for Eval:: Dizziness and near syncope and left shoulder pain Diagnosis: Intermittent chest pain near syncope and lower leg edema Discharge Exam General Appearance: mild distress, alert, No anxiety Neurologic Exam: alert, oriented x 3, cooperative, depressed mood/affect Eye Exam: eyes nml inspection, No scleral icterus Ears, Nose, Throat Exam: moist mucous membranes Neck Exam: normal inspection Respiratory Exam: normal breath sounds, lungs clear, No chest tenderness, No respiratory distress, No diminished breath sounds Cardiovascular Exam: regular rate/rhythm, normal heart sounds, No murmur, No friction rub, No gallop Gastrointestinal/Abdomen Exam: soft, normal bowel sounds, No tenderness, No distention, No mass, No guarding Pelvic Exam: No deferred Rectal Exam: No deferred Extremity Exam: normal inspection, No pedal edema, No swelling, No tenderness Skin Exam: normal color, warm, dry, No rash Final Diagnosis/Problem List - Final Discharge Diagnosis/Problem (1) Chest pain Status: Chronic Assessment & Plan: Patient had reported intermittent chest pain. Trops and ekgs were wnl. Echo showed normal contractility. Patient will likely require stress testing as outpatient. Patient is no reporting chest discomfort this am. Code(s): R07.9 - CHEST PAIN, UNSPECIFIED (2) Headache Status: Acute Assessment & Plan: Patient did develop headache and had extremely high bp. CT scan of head was negative for any pathology except some basal ganglia calcifications. N eurologists was contacted and reported this was a normal finding on CT scan as patient ages. Patient's BHATT was improved. Code(s): R51.9 - HEADACHE, UNSPECIFIED (3) Near syncope Status: Acute Assessment & Plan: Patient reports near syncopal episode. She was evaluated by PT. She was noted to be able to ambulate independently. PT did not feel that patient needed to have further tx as outpatient. (4) Hypothyroid Status: Acute Assessment & Plan: Patient was on thyroid medication and was overmedicated. We discontinued med while in hospital. Will have patient start lower dose after discharge from hospital. She will need a repeat TSH Code(s): E03.9 - HYPOTHYROIDISM, UNSPECIFIED (5) SUSAN (acute kidney injury) Status: Acute Assessment & Plan: Patient had mildly elevated kidney function. Will continue to trend as an outpatient and address as necessary Code(s): N17.9 - ACUTE KIDNEY FAILURE, UNSPECIFIED (6) Anemia Status: Acute Assessment & Plan: Patient had mildly low hgb. Will continue to trend and address as necessary Code(s): D64.9 - ANEMIA, UNSPECIFIED (7) Hypertension Status: Acute Assessment & Plan: Patient did require PRN medication for HTN. Will continue to trend as outpatient. Code(s): I10 - ESSENTIAL (PRIMARY) HYPERTENSION - Discharge Disposition: Home, Self-Care Condition: Stable Prescriptions: New Levothyroxine Sodium 88 Mcg [Synthroid 88 Mcg] 88 mcg PO DAILY #30 tablet Continue Famotidine [Pepcid] 40 mg PO QHS Atorvastatin Calcium [Lipitor 40Mg] 40 mg PO HS Glimepiride 2 mg [Amaryl 2 MG] 6 mg PO DAILY Metformin HCl 500 mg PO ACHS Trazodone HCl 50 mg [Desyrel 50 mg] 50 mg PO HS Omeprazole 40 mg PO HS Olmesartan Medoxomil 40 mg PO DAILY Discontinued Levothyroxine Sodium [Levothyroxine] 125 mcg PO DAILY Instructions: Near Fainting (DC) Additional Instructions: Patient will hold her levothyroxin until monday and start taking 88 mcg at that time.She will need repeat TSH as outpatient in 4 weeks. She will get scheduled for additional cardiac testing as outpatient. Phone call has been put in to neurology to see if she needs to be seen. She can follow up in clinic next week HOLD METFORMIN, MAY RESUME 02/26/21 AT 2:00PM Follow up with: FUENTES RODRIGUEZ MD [ACTIVE STAFF] - 03/04/21 10:30 am
[2021-02-26] MEDS ORDERED: Glucophage 500 MG PO SCH (16:30)
== END 2021-02-25 11:25 | disposition home or self-care (01) ==
LOC: MED SURG 13:12
PROVIDERS: ADMIT Family Medicine; ATTEND Family Medicine
DX: R07.9 Chest pain, unspecified (principal); R55 Syncope and collapse; F51.9 Sleep disorder not due to a substance or known physiological condition, unspecified; Z79.899 Other long term (current) drug therapy; R51.9 Headache, unspecified; E03.9 Hypothyroidism, unspecified; N17.9 Acute kidney failure, unspecified; D64.9 Anemia, unspecified; I10 Essential (primary) hypertension
CPT/HCPCS: 0241U; 36415; 70470; 76536; 76770; 80053; 80061; 82746; 82947; 83721; 83735; 83880; 84443; 84481; 84484; 85025; 85379; 93005; 93268; 93306; 97161; G0378; J1650; A9270-GY

== ENCOUNTER 2025-01-14 10:33 | Observation (INO) | payer MEDICARE ==
--- NOTE | 2025-01-14 10:39 | ERPHSYRPT ---
- History of Present Illness Time Seen by Provider: 01/14/25 10:38 Source: patient, EMS Exam Limitations: no limitations Physician History: This is a 69-year-old white female patient brought to the emergency department by the paramedics secondary to 4-day history of shortness of breath and cough. Patient was on an 8-day cruise and returned to home yesterday. For the last 3 days of her cruise and yesterday patient was having increasing shortness of breath and cough without chest pain. She has not had a fever. She has not had any nausea vomiting or diarrhea symptoms. Patient does not have chest pain at this time. Patient is currently on 2 L of oxygen via nasal cannula. She does not ordinarily wear oxygen. Her oxygen saturation level is 96 to 97% on the 2 L of oxygen. Patient has a history of hyperlipidemia, hypothyroidism, diabetes, gastroesophageal reflux disease and hypertension. Patient has been told that she does have a degree of COPD. Additionally, patient has a history of coronary artery disease having had a myocardial infarction in the past and has had 3 cardiac stents placed. Timing/Duration: day(s) (4) Activities at Onset: activity, rest ([place]) Severity of Dyspnea-Max: moderate Severity of Dyspnea-Current: mild Possible Cause: occasional episodes Modifying Factors: Improves With: coughing, oxygen Associated Symptoms: cough, No chest pain/discomfort (Removed), No wheezing Allergies/Adverse Reactions: No Known Drug Allergies Allergy (Verified 01/14/25 11:04) Home Medications: Atorvastatin Calcium [Lipitor 40Mg] 80 mg PO HS 02/23/21 [History] Trazodone HCl 50 mg [Desyrel 50 mg] 150 mg PO HS 02/23/21 [History] Benzonatate 100 mg PO TID PRN 01/14/25 [History] Carvedilol [Coreg ] 6.25 mg PO BID 01/14/25 [History] Clopidogrel Bisulfate [PLAVIX Tablet] 75 mg PO DAILY 01/14/25 [History] Empagliflozin [Jardiance] 25 mg PO DAILY 01/14/25 [History] Levothyroxine Sodium 75 Mcg [Synthroid 75 Mcg] 75 mcg PO DAILY 01/14/25 [History] Valsartan [Diovan] 320 mg PO DAILY 01/14/25 [History] Hx Tetanus, Diphtheria Vaccination/Date Given: Yes Hx Influenza Vaccination/Date Given: Yes (2015) Hx Pneumococcal Vaccination/Date Given: No Travel Risk - International Travel Have you traveled outside of the country in past 3 weeks: Yes - Emerging Infectious Disease Are you exhibiting symptoms associated with any current EIDs: Yes Symptoms: Cough: New Onset, Shortness of Breath - Review of Systems Constitutional: No Symptoms Eyes: No Symptoms Ears, Nose, & Throat: No Symptoms Respiratory: Cough, Dyspnea Cardiac: No Symptoms Abdominal/Gastrointestinal: No Symptoms Genitourinary Symptoms: No Symptoms Musculoskeletal: No Symptoms Skin: No Symptoms Neurological: No Symptoms Psychological: No Symptoms Endocrine: No Symptoms Hematologic/Lymphatic: No Symptoms Immunological/Allergic: No Symptoms All Other Systems: Reviewed and Negative - Past Medical History Pertinent Past Medical History: Yes Neurological History: TIA Cardiac History: High Cholesterol, Hypertension, Myocardial Infarction ([place]) Respiratory History: No Pertinent History Endocrine Medical History: Diabetes Type II, Hypothyroidism, Other Musculoskeletal History: Degenerative Disk Disease, Osteoarthritis Other Medical History: [place] 2019, 3 CARDIAC STINTS. KIDNEY PROBLEMS. - Past Surgical History Past Surgical History: Yes Neuro Surgical History: No Pertinent History Cardiac: No Pertinent History Respiratory: No Pertinent History Gastrointestinal: No Pertinent History Musculoskeletal: No Pertinent History Female Surgical History: Tubal Ligation - Social History Smoking Status: Former smoker Exposure to second hand smoke: No Drug Use: none - Nursing Vital Signs Nursing Vital Signs: Initial Vital Signs Temperature 101.5 F 01/14/25 10:40 Pulse Rate 104 H 01/14/25 10:40 Respiratory Rate 16 01/14/25 10:40 Blood Pressure 174/88 01/14/25 10:40 O2 Sat by Pulse Oximetry 91 L 01/14/25 10:40 Pain Scale Pain Intensity 0 - Physical Exam General Appearance: mild distress, alert, anxiety Eye Exam: PERRL/EOMI, eyes nml inspection Ears, Nose, Throat Exam: hearing grossly normal, normal ENT inspection, normal pharynx Neck Exam: normal inspection, non-tender, supple, full range of motion Respiratory Exam: normal breath sounds, lungs clear, airway intact, No chest tenderness, No respiratory distress Cardiovascular/Chest Exam: normal heart sounds, regular rate/rhythm, normal peripheral pulses Abdominal/Gastrointestinal Exam: soft, normal bowel sounds, No tenderness Rectal Exam: not done Extremity Exam: non-tender, normal range of motion, normal inspection, no calf tenderness, no pedal edema, pelvis stable Neurologic Exam: alert, oriented x 3, cooperative, charge entry II-XII nml as tested, nml cerebellar function, nml station & gait, sensation nml Skin Exam: normal color, warm, dry Lymphatic Exam: No adenopathy SpO2 Interpretation: normal O2 Delivery: Nasal Cannula (2 L of oxygen) - Course Nursing assessment & vital signs reviewed: Yes EKG Interpreted by Me: RATE (94), Sinus Rhythm, NORMAL AXIS, NORMAL INTERVALS, NORMAL QRS, Other (No change on today's twelve-lead EKG when compared to similar twelve-lead EKG dated 02/23/2021. The QTc today is 420. There is no evidence of acute ischemia) Ordered Tests: Active Orders 24 hr Category Date Time Status Manager Software Development STAT Care 01/14/25 10:51 Active EKG-ER Only STAT Care 01/14/25 10:50 Active IV Insertion STAT Care 01/14/25 10:50 Active Oxygen-ED Only Nasal Cannula 2 lpm Care 01/14/25 10:53 Active Pulse Oximetry (ED) STAT Care 01/14/25 10:50 Active CHEST 1 VIEW (PORTABLE) Stat Exams 01/14/25 10:51 Completed BLOOD CULTURE Stat Lab 01/14/25 11:20 Received CBC W DIFF Stat Lab 01/14/25 11:50 Completed CMP Stat Lab 01/14/25 11:10 Completed CULTURE,SPUTUM Stat Lab 01/14/25 10:51 Ordered Lactic Acid Stat Lab 01/14/25 11:27 Completed MAGNESIUM Stat Lab 01/14/25 11:10 Completed NT PRO BNPII Stat Lab 01/14/25 11:10 Completed TROPONIN Q4H Lab 01/14/25 11:10 Completed TROPONIN Q4H Lab 01/14/25 13:02 Received TROPONIN Q4H Lab 01/14/25 19:00 Ordered Lab/Rad Data: Laboratory Result Diagrams 01/14/25 11:50 01/14/25 11:10 Laboratory Results 01/14/25 01/14/25 01/14/25 Range/Units 11:50 11:27 11:10 WBC 9.8 (3.98-10.04) x10^3/uL RBC 3.84 L (3.93-5.22) x10^6/uL Hgb 11.8 (11.2-15.7) g/dL Hct 35.6 (34.1-44.9) % MCV 92.7 (79.4-94.8) fL MCH 30.7 (25.6-32.2) pg MCHC 33.1 (32.2-35.5) g/dL RDW 12.0 (11.7-14.4) % Plt Count 128 L (182-369) x10^3/uL MPV 10.7 (9.4-12.3) fL Gran % 81.4 H (34.0-71.1) % Immature Gran % (Auto) 0.7 H (0.001-0.429) % Nucleat RBC Rel Count 0.0 (0.00-0.2) % Eos # (Auto) 0.03 L (0.04-0.36) x10^3/uL Immature Gran # (Auto) 0.07 H (0.001-0.031) x10^3u/L Absolute Lymphs (auto) 0.71 L (1.18-3.74) x10^3/uL Absolute Monos (auto) 1.00 H (0.24-0.86) x10^3/uL Absolute Nucleated RBC 0.00 (0.00-0.012) x10^3u/L Lymphocytes % 7.2 L (19.3-51.7) % Monocytes % 10.2 (4.7-12.5) % Eosinophils % 0.3 L (0.7-5.8) % Basophils % 0.2 (0.1-1.2) % Absolute Granulocytes 7.97 H (1.56-6.13) x10^3/uL Basophils # 0.02 (0.01-0.08) x10^3/uL Sodium (135-145) mmol/L Potassium (3.5-5.1) mmol/L Chloride (98-107) mmol/L Carbon Dioxide (22-30) mmol/L Anion Gap (5-15) MEQ/L BUN (7-17) mg/dL Creatinine (0.52-1.04) mg/dL Estimated GFR ML/MIN Glucose (74-106) mg/dL Lactic Acid 1.1 (0.4-2.0) Calcium (8.4-10.2) mg/dL Magnesium (1.6-2.3) mg/dL Total Bilirubin (0.2-1.3) mg/dL AST (14-36) U/L ALT (0-35) U/L Alkaline Phosphatase (38-126) U/L Troponin I (0.000-0.033) ng/mL NT-Pro-B Natriuret Pep (<300) pg/mL Serum Total Protein (6.3-8.2) g/dL Albumin (3.5-5.0) g/dL Influenza Type A Ag POSITIVE A (NEGATIVE) Influenza Type B Ag NEGATIVE (NEGATIVE) RSV (PCR) NEGATIVE (NEGATIVE) SARS-CoV-2 (PCR) NEGATIVE (NEGATIVE) 01/14/25 01/14/25 Range/Units 11:10 11:10 WBC (3.98-10.04) x10^3/uL RBC (3.93-5.22) x10^6/uL Hgb (11.2-15.7) g/dL Hct (34.1-44.9) % MCV (79.4-94.8) fL MCH (25.6-32.2) pg MCHC (32.2-35.5) g/dL RDW (11.7-14.4) % Plt Count (182-369) x10^3/uL MPV (9.4-12.3) fL Gran % (34.0-71.1) % Immature Gran % (Auto) (0.001-0.429) % Nucleat RBC Rel Count (0.00-0.2) % Eos # (Auto) (0.04-0.36) x10^3/uL Immature Gran # (Auto) (0.001-0.031) x10^3u/L Absolute Lymphs (auto) (1.18-3.74) x10^3/uL Absolute Monos (auto) (0.24-0.86) x10^3/uL Absolute Nucleated RBC (0.00-0.012) x10^3u/L Lymphocytes % (19.3-51.7) % Monocytes % (4.7-12.5) % Eosinophils % (0.7-5.8) % Basophils % (0.1-1.2) % Absolute Granulocytes (1.56-6.13) x10^3/uL Basophils # (0.01-0.08) x10^3/uL Sodium 137 (135-145) mmol/L Potassium 4.3 (3.5-5.1) mmol/L Chloride 106 (98-107) mmol/L Carbon Dioxide 22 (22-30) mmol/L Anion Gap 12.8 (5-15) MEQ/L BUN 29 H (7-17) mg/dL Creatinine 1.18 H (0.52-1.04) mg/dL Estimated GFR 49.7 ML/MIN Glucose 146 H (74-106) mg/dL Lactic Acid (0.4-2.0) Calcium 8.3 L (8.4-10.2) mg/dL Magnesium 2.1 (1.6-2.3) mg/dL Total Bilirubin 0.70 (0.2-1.3) mg/dL AST 38 H (14-36) U/L ALT 24 (0-35) U/L Alkaline Phosphatase 66 (38-126) U/L Troponin I < 0.012 (0.000-0.033) ng/mL NT-Pro-B Natriuret Pep 97.8 (<300) pg/mL Serum Total Protein 5.8 L (6.3-8.2) g/dL Albumin 3.6 (3.5-5.0) g/dL Influenza Type A Ag (NEGATIVE) Influenza Type B Ag (NEGATIVE) RSV (PCR) (NEGATIVE) SARS-CoV-2 (PCR) (NEGATIVE) - Progress Progress: improved, re-examined Air Movement: good Progress Note: 01/14/25 11:38 My medical decision making of the assignment of moderate complexity to this patient's medical issue today is based on review of the patient's past medical history, review of the patient's medication list, reviewed patient drug allergy list, history present illness and physical findings on examination. The workup in this patient includes placement of intravenous line, twelve-lead EKG, troponin level, BNP level, chest x-ray, CBC, CMP, magnesium level, viral swabs. Differential diagnosis includes but is not limited to myocardial infarction, electrolyte abnormalities, COPD exacerbation, CHF exacerbation, arrhythmia, pneumonia The final chest x-ray report was interpreted by the radiologist. The impression states normal heart and lungs. No new or acute findings. 01/14/25 12:30 I interpreted the patient's laboratory data results. Based on the laboratory data results, the patient is positive for influenza A. The remainder of her lab results show no acute, emergent medical issues. I will not be prescribing Tamiflu in this patient as her symptoms began 4 days ago. She is out side the recommended timeframe to start Tamiflu medication. I will repeat a twelve-lead EKG and troponin level as this patient has a history of coronary artery disease. 01/14/25 13:21 I interpreted the second twelve-lead EKG that was performed on 01/14/2025 at 1303. The heart rate is 81 bpm. The rhythm is sinus rhythm. There is normal axis deviation, normal intervals and normal QRS. The QTc is 451. There is no evidence of any acute ischemia. The second troponin is pending. I had respiratory therapy evaluate this patient. Patient is requiring 2 L of oxygen via nasal cannula to keep her oxygen saturation levels approximately 91 to 93%. However, when she is up and walking her oxygen saturation dropped to 87% on room air. I spoke with Dr. Darby, the telehospitalist on at this time. I reviewed the patient history, chief complaint, physical findings on examination, results of our workup and the patient response to our interventions. She agrees to place this patient in observation. Blood Culture(s) Obtained: Yes Antibiotics given: No Counseled pt/family regarding: lab results, diagnosis, rad results Medical Desision Making - Independent Historian Additional History obtained from: Relative/friend, Quahogger/EMT - Discussion of managment Care discussed with:: hospitalist Reviewed:: Test results, Need for additional workup Agreed on:: place in obs Will see patient: in hospital - Diagnostic Testing Diagnostic test were ordered, analyzed, and reviewed by me: Yes Radiological Interpretation: Reviewed by me, Teleradiologist Report - Risk of complications The pt has a high risk of morbidity or mortality based on: Decision regarding hospitilization or escalation of hosp level of care - Departure Departure Disposition: Observation Clinical Impression: Influenza A H1N1 infection, Hypoxia Condition: Fair Critical Care Time: Yes Critical Care Time(excluding separately billable procedures): Critical 30-74 mins (40) Referrals: FARHANA ARMENTA [Primary Care Provider] - Follow up/PCP as directed
--- NOTE | 2025-01-14 11:10 | XRAY ---
Indication: Short of breath. Cough. Comparison: November 09, 2016 Portable chest again demonstrates normal heart and lungs. Bony thorax intact. No new/acute findings.
[2025-01-14 11:52] LABS: ALBUMIN 3.6 g/dL (3.5-5.0); ANION GAP 12.8 MEQ/L (5-15); BILIRUBIN,TOTAL 0.7 mg/dL (0.2-1.3); Calcium 8.3 mg/dL (8.4-10.2); Creatinine 1 1.18 mg/dL (0.52-1.04); EST GLOMERULAR FILTRATION RATE 49.7 ML/MIN; MAGNESIUM 2.1 mg/dL (1.6-2.3); NT PRO BNPII 97.8 pg/mL (<300); Potassium 4.3 mmol/L (3.5-5.1); Total Protein 5.8 g/dL (6.3-8.2)
[2025-01-14 11:53] LABS: Absolute Neutrophil Ct (ANC) 7.97 x10^3/uL (1.56-6.13); BASOPHIL % 0.2 % (0.1-1.2); Basophil (Absolute #) 0.02 x10^3/uL (0.01-0.08); Eosinophil % 0.3 % (0.7-5.8); Eosinophil (Absolute #) 0.03 x10^3/uL (0.04-0.36); Hematocrit 35.6 % (34.1-44.9); Hemoglobin 11.8 g/dL (11.2-15.7); IMMATURE GRAN # 0.07 x10^3u/L (0.001-0.031); IMMATURE GRAN % 0.7 % (0.001-0.429); Lymphocyte (Absolute #) 0.71 x10^3/uL (1.18-3.74); Lymphocytes % 7.2 % (19.3-51.7); Mean Cell Volume 92.7 fL (79.4-94.8); Mean Corpuscular Hemoglobin 30.7 pg (25.6-32.2); Mean Corpuscular Hgb Concent. 33.1 g/dL (32.2-35.5); Mean Platelet Volume 10.7 fL (9.4-12.3); Monocytes % 10.2 % (4.7-12.5); Neutrophil % 81.4 % (34.0-71.1); Platelet Count 128 x10^3/uL (182-369); Red Blood Count 3.84 x10^6/uL (3.93-5.22); White Blood Count 9.8 x10^3/uL (3.98-10.04)
[2025-01-14 12:24] LABS: INFLUENZA B NEGATIVE (NEGATIVE); RESPIRATORY SYNCTIAL VIRUS NEGATIVE (NEGATIVE); SARS-CoV-2 Xpert Express NEGATIVE (NEGATIVE)
[2025-01-14 12:27] LABS: INFLUENZA A POSITIVE (NEGATIVE)
[2025-01-14] MEDS ORDERED: Zofran 4 MG/2 ML VIAL IV PRN (13:57)
--- NOTE | 2025-01-14 14:02 | PCM.HP ---
<CHAR CULVER - Last Filed: 01/14/25 14:21> History of Present Illness - Chief Complaint Chief Complaint: FLUA/Hypoxia Date: 01/14/25 History of Present Illness: is a 69 year old female with a history of stroke, COPD, coronary artery disease (status post three stents with prior myocardial infarction), hypertension, type 2 diabetes mellitus, hyperlipidemia, hypothyroidism, and GERD presents with a four-day history of progressive shortness of breath,nausea, sore throat, vomiting, diarrhea, fever, and cough. She recently returned from an [place]-day cruise, during which she developed worsening respiratory symptoms over the last three days. Several contacts on the cruise are also sick. The patient does not use supplemental oxygen at baseline but required 2L nasal cannula to maintain oxygen saturation of 96-97%. However, she becomes hypoxic to 87% on room air with ambulation. During my interview patient is on RA with spo2 at 94%. She denies cp or abdominal pain. On arrival to the emergency department, she was noted to be tachycardic, febrile, and hypoxic. A portable chest X-ray demonstrated no acute cardiopulmonary abnormalities. Laboratory studies were significant for mild thrombocytopenia, an elevated creatinine of 1.18 (baseline 1.1-1.2), and a positive influenza A test. Given her clinical presentation, she is admitted for acute hypoxic respiratory failure secondary to influenza A/COPD exacerbation. - Review of Systems Constitutional: Fever, Chills, Weakness Eyes: No Symptoms Ears, Nose, & Throat: Throat Pain Respiratory: Cough, Short Of Breath Cardiac: No Symptoms Abdominal/Gastrointestinal: Nausea, Vomiting, Diarrhea Genitourinary Symptoms: No Symptoms Musculoskeletal: No Symptoms Skin: No Symptoms Neurological: Dizziness, Headache Psychological: No Symptoms Endocrine: No Symptoms Hematologic/Lymphatic: No Symptoms Immunological/Allergic: No Symptoms Medications & Allergies Home Medications: Home Medication List Atorvastatin Calcium [Lipitor 40Mg] 80 mg PO HS 02/23/21 [History Confirmed ] Trazodone HCl 50 mg [Desyrel 50 mg] 150 mg PO HS 02/23/21 [History Confirmed 01/14/25] Benzonatate 100 mg PO TID PRN 01/14/25 [History Confirmed 01/14/25] Carvedilol [Coreg ] 6.25 mg PO BID 01/14/25 [History Confirmed 01/14/25] Clopidogrel Bisulfate [PLAVIX Tablet] 75 mg PO DAILY 01/14/25 [History Confirmed 01/14/25] Empagliflozin [Jardiance] 25 mg PO DAILY 01/14/25 [History Confirmed 01/14/25] Insulin Glargine [Lantus Insulin] 30 units SQ HS 01/14/25 [History Confirmed 01/14/25] Levothyroxine Sodium 75 Mcg [Synthroid 75 Mcg] 75 mcg PO DAILY 01/14/25 [History Confirmed 01/14/25] Valsartan [Diovan] 320 mg PO DAILY 01/14/25 [History Confirmed 01/14/25] Allergies/Adverse Reactions: Allergies Allergy/AdvReac Type Severity Reaction Status Date / Time No Known Drug Allergies Allergy Verified 01/14/25 14:05 - Past Medical History Past Medical History: Yes Neurological History: TIA Cardiac History: High Cholesterol, Hypertension, Myocardial Infarction (ND) Respiratory History: No Pertinent History Endocrine Medical History: Diabetes Type II, Hypothyroidism, Other Musculoskelatal History: Degenerative Disk Disease, Osteoarthritis GI Medical History: GERD History: Renal Disease Pyscho-Social History: Depression Reproductive Disorders: No Pertinent History Comment: [place] 2019, 3 CARDIAC STINTS. KIDNEY PROBLEMS. - Past Surgical History Past Surgical History: Yes Neuro Surgical History: No Pertinent History Cardiac History: No Pertinent History Respiratory Surgery: No Pertinent History GI Surgical History: No Pertinent History Musculskeletal Surgical Hx: No Pertinent History Female Surgical History: Tubal Ligation Significant Family History: heart disease - Social History Smoking Status: Former smoker Exposure to second hand smoke: No Alcohol: None Drug Use: none - Social Determinants of Health Will the patient participate in the screening: Yes Do you worry about a steady place to live?: No Do you have any problems with any of the following?: No known problems In the past 12 months,have you had to go without utilities?: No Have you or anyone in your house had to go without enough: No Transportation Issues: No Has anyone in your support network made you feel unsafe?: No - Physical Exam Vital Signs: Vital Signs - 24 hr Temp Pulse Resp BP BP Pulse Ox 01/14/25 13:00 85 16 141/77 93 L 01/14/25 12:30 85 22 158/85 88 L 01/14/25 12:00 82 16 161/72 01/14/25 11:30 83 24 133/73 01/14/25 11:00 88 18 165/80 92 L 01/14/25 10:50 95 01/14/25 10:41 97 H 12 174/88 92 L 01/14/25 10:40 101.5 F 104 H 16 174/88 91 L General Appearance: no apparent distress Neurologic Exam: alert, oriented x 3, cooperative Eye Exam: PERRL/EOMI Ears, Nose, Throat Exam: normal ENT inspection Neck Exam: normal inspection Respiratory Exam: normal breath sounds, lungs clear Cardiovascular Exam: regular rate/rhythm, normal heart sounds Gastrointestinal/Abdomen Exam: soft, normal bowel sounds Pelvic Exam: not done Rectal Exam: deferred Back Exam: normal inspection Extremity Exam: swelling (Bilateral ankles - trace) Skin Exam: pale Results - Labs Lab/Micro Results: Lab Results-Last 24 Hours 01/14/25 01/14/25 01/14/25 Range/Units 11:10 11:10 11:10 WBC (3.98-10.04) x10^3/uL RBC (3.93-5.22) x10^6/uL Hgb (11.2-15.7) g/dL Hct (34.1-44.9) % MCV (79.4-94.8) fL MCH (25.6-32.2) pg MCHC (32.2-35.5) g/dL RDW (11.7-14.4) % Plt Count (182-369) x10^3/uL MPV (9.4-12.3) fL Gran % (34.0-71.1) % Immature Gran % (Auto) (0.001-0.429) % Nucleat RBC Rel Count (0.00-0.2) % Eos # (Auto) (0.04-0.36) x10^3/uL Immature Gran # (Auto) (0.001-0.031) x10^3u/L Absolute Lymphs (auto) (1.18-3.74) x10^3/uL Absolute Monos (auto) (0.24-0.86) x10^3/uL Absolute Nucleated RBC (0.00-0.012) x10^3u/L Lymphocytes % (19.3-51.7) % Monocytes % (4.7-12.5) % Eosinophils % (0.7-5.8) % Basophils % (0.1-1.2) % Absolute Granulocytes (1.56-6.13) x10^3/uL Basophils # (0.01-0.08) x10^3/uL Sodium 137 (135-145) mmol/L Potassium 4.3 (3.5-5.1) mmol/L Chloride 106 (98-107) mmol/L Carbon Dioxide 22 (22-30) mmol/L Anion Gap 12.8 (5-15) MEQ/L BUN 29 H (7-17) mg/dL Creatinine 1.18 H (0.52-1.04) mg/dL Estimated GFR 49.7 ML/MIN Glucose 146 H (74-106) mg/dL Lactic Acid (0.4-2.0) Calcium 8.3 L (8.4-10.2) mg/dL Magnesium 2.1 (1.6-2.3) mg/dL Total Bilirubin 0.70 (0.2-1.3) mg/dL AST 38 H (14-36) U/L ALT 24 (0-35) U/L Alkaline Phosphatase 66 (38-126) U/L Troponin I < 0.012 (0.000-0.033) ng/mL NT-Pro-B Natriuret Pep 97.8 (<300) pg/mL Serum Total Protein 5.8 L (6.3-8.2) g/dL Albumin 3.6 (3.5-5.0) g/dL Influenza Type A Ag POSITIVE A (NEGATIVE) Influenza Type B Ag NEGATIVE (NEGATIVE) RSV (PCR) NEGATIVE (NEGATIVE) SARS-CoV-2 (PCR) NEGATIVE (NEGATIVE) 01/14/25 01/14/25 01/14/25 Range/Units 11:27 11:50 13:02 WBC 9.8 (3.98-10.04) x10^3/uL RBC 3.84 L (3.93-5.22) x10^6/uL Hgb 11.8 (11.2-15.7) g/dL Hct 35.6 (34.1-44.9) % MCV 92.7 (79.4-94.8) fL MCH 30.7 (25.6-32.2) pg MCHC 33.1 (32.2-35.5) g/dL RDW 12.0 (11.7-14.4) % Plt Count 128 L (182-369) x10^3/uL MPV 10.7 (9.4-12.3) fL Gran % 81.4 H (34.0-71.1) % Immature Gran % (Auto) 0.7 H (0.001-0.429) % Nucleat RBC Rel Count 0.0 (0.00-0.2) % Eos # (Auto) 0.03 L (0.04-0.36) x10^3/uL Immature Gran # (Auto) 0.07 H (0.001-0.031) x10^3u/L Absolute Lymphs (auto) 0.71 L (1.18-3.74) x10^3/uL Absolute Monos (auto) 1.00 H (0.24-0.86) x10^3/uL Absolute Nucleated RBC 0.00 (0.00-0.012) x10^3u/L Lymphocytes % 7.2 L (19.3-51.7) % Monocytes % 10.2 (4.7-12.5) % Eosinophils % 0.3 L (0.7-5.8) % Basophils % 0.2 (0.1-1.2) % Absolute Granulocytes 7.97 H (1.56-6.13) x10^3/uL Basophils # 0.02 (0.01-0.08) x10^3/uL Sodium (135-145) mmol/L Potassium (3.5-5.1) mmol/L Chloride (98-107) mmol/L Carbon Dioxide (22-30) mmol/L Anion Gap (5-15) MEQ/L BUN (7-17) mg/dL Creatinine (0.52-1.04) mg/dL Estimated GFR ML/MIN Glucose (74-106) mg/dL Lactic Acid 1.1 (0.4-2.0) Calcium (8.4-10.2) mg/dL Magnesium (1.6-2.3) mg/dL Total Bilirubin (0.2-1.3) mg/dL AST (14-36) U/L ALT (0-35) U/L Alkaline Phosphatase (38-126) U/L Troponin I < 0.012 (0.000-0.033) ng/mL NT-Pro-B Natriuret Pep (<300) pg/mL Serum Total Protein (6.3-8.2) g/dL Albumin (3.5-5.0) g/dL Influenza Type A Ag (NEGATIVE) Influenza Type B Ag (NEGATIVE) RSV (PCR) (NEGATIVE) SARS-CoV-2 (PCR) (NEGATIVE) - Radiology Impressions Radiology Exams & Impressions: Radiology Procedures Category Date Time Status CHEST 1 VIEW (PORTABLE) Stat Exams 01/14/25 10:51 Completed Assessment/Plan (1) Acute respiratory failure with hypoxia Current Visit: Yes Status: Acute Assessment & Plan: -CXR reviewed demonstrating no acute cardiopulmonary abnormalities -2/2 to FluA/COPD exacerbation -DDimer -Supplemental oxygen with goal spo2 > 91% -Nebs/INH -RT eval and treat -Out of window for tamiflu -Ceftriaxone/azithromycin -Consider CT if no improvement -Supportive care with anti-pyrectic/anti-emetics, IVF, cough suppressant Code(s): J96.01 - ACUTE RESPIRATORY FAILURE WITH HYPOXIA (2) Influenza A H1N1 infection Current Visit: Yes Status: Acute Assessment & Plan: -see ARF Code(s): J10.1 - FLU DUE TO OTH IDENT INFLUENZA VIRUS W OTH RESP MANIFEST (3) COPD exacerbation Current Visit: Yes Status: Acute Assessment & Plan: -see arf Code(s): J44.1 - CHRONIC OBSTRUCTIVE PULMONARY DISEASE W (ACUTE) EXACERBATION (4) CAD (coronary artery disease) Current Visit: Yes Status: Acute Assessment & Plan: -w/stent placement -Continue home meds Code(s): I25.10 - ATHSCL HEART DISEASE OF [place] CORONARY ARTERY W/O ANG PCTRS (5) Type 2 diabetes mellitus Current Visit: Yes Status: Acute Assessment & Plan: -ADA diet -A1c -SSI (6) HLD (hyperlipidemia) Current Visit: Yes Status: Acute Assessment & Plan: -continue statin Code(s): E78.5 - HYPERLIPIDEMIA, UNSPECIFIED (7) GERD (gastroesophageal reflux disease) Current Visit: Yes Status: Acute Assessment & Plan: -Protonix Code(s): K21.9 - GASTRO-ESOPHAGEAL REFLUX DISEASE WITHOUT ESOPHAGITIS (8) SUSAN (acute kidney injury) Current Visit: No Status: Acute Assessment & Plan: -Mild - baseline appears to be around 1.1-1.2 although the most recent labs on file are several years old -gentle hydration at 50ml/hr -Monitor renal/lytes -avoid nephrotoxic agents Code(s): N17.9 - ACUTE KIDNEY FAILURE, UNSPECIFIED (9) Hypertension Current Visit: No Status: Acute Assessment & Plan: -Continue home meds and monitor closely for any adjustments needed Code(s): I10 - ESSENTIAL (PRIMARY) HYPERTENSION (10) Nausea and vomiting Current Visit: Yes Status: Acute Assessment & Plan: - most likely secondary to FluA -IVF - anti-emetics Code(s): R11.2 - NAUSEA WITH VOMITING, UNSPECIFIED (11) Diarrhea Current Visit: Yes Status: Acute Assessment & Plan: -CDIFF -Stool cultures -hold immodium until cdiff results -IVF Code(s): R19.7 - DIARRHEA, UNSPECIFIED (12) Hypothyroid Current Visit: No Status: Acute Assessment & Plan: -continue home meds VTE: Lovenox PPI: Protonix Dispo: 1-2 days Code status: Full Code(s): E03.9 - HYPOTHYROIDISM, UNSPECIFIED Telemedicine Encounter - Telemedicine Encounter Telemedicine Encounter: "The entirety of this encounter was performed via Telemedicine" This visit was performed using real-time audio and video connection between my location and thepatients locationwith the assistance of a surrogateat the patients location. Written or verbal consent was obtained from the patient/guardian to perform this visit [facility]. Any patient questions regarding the telemedicine interaction were answered. <RAMON YANES - Last Filed: 01/14/25 21:03> History of Present Illness - Chief Complaint History of Present Illness: is a 69 year old female. - Physical Exam Vital Signs: Vital Signs - 24 hr Temp Pulse Resp BP BP Pulse Ox 01/14/25 20:11 101.6 F 82 17 126/80 95 01/14/25 18:35 89 20 90 L 01/14/25 16:20 97.6 F 86 16 164/82 94 L 01/14/25 16:13 84 16 92 L 01/14/25 14:09 97.6 F 86 16 164/82 94 L 01/14/25 13:57 97.6 F 86 16 164/82 94 L 01/14/25 13:00 85 16 141/77 93 L 01/14/25 12:30 85 22 158/85 88 L 01/14/25 12:00 82 16 161/72 01/14/25 11:30 83 24 133/73 01/14/25 11:00 88 18 165/80 92 L 01/14/25 10:50 95 01/14/25 10:41 97 H 12 174/88 92 L 01/14/25 10:40 101.5 F 104 H 16 174/88 91 L Results - Labs Lab/Micro Results: Lab Results-Last 24 Hours 01/14/25 01/14/25 01/14/25 Range/Units 11:10 11:10 11:10 WBC (3.98-10.04) x10^3/uL RBC (3.93-5.22) x10^6/uL Hgb (11.2-15.7) g/dL Hct (34.1-44.9) % MCV (79.4-94.8) fL MCH (25.6-32.2) pg MCHC (32.2-35.5) g/dL RDW (11.7-14.4) % Plt Count (182-369) x10^3/uL MPV (9.4-12.3) fL Gran % (34.0-71.1) % Immature Gran % (Auto) (0.001-0.429) % Nucleat RBC Rel Count (0.00-0.2) % Eos # (Auto) (0.04-0.36) x10^3/uL Immature Gran # (Auto) (0.001-0.031) x10^3u/L Absolute Lymphs (auto) (1.18-3.74) x10^3/uL Absolute Monos (auto) (0.24-0.86) x10^3/uL Absolute Nucleated RBC (0.00-0.012) x10^3u/L Lymphocytes % (19.3-51.7) % Monocytes % (4.7-12.5) % Eosinophils % (0.7-5.8) % Basophils % (0.1-1.2) % Absolute Granulocytes (1.56-6.13) x10^3/uL Basophils # (0.01-0.08) x10^3/uL D-Dimer (0.0-0.50) mg/L Sodium 137 (135-145) mmol/L Potassium 4.3 (3.5-5.1) mmol/L Chloride 106 (98-107) mmol/L Carbon Dioxide 22 (22-30) mmol/L Anion Gap 12.8 (5-15) MEQ/L BUN 29 H (7-17) mg/dL Creatinine 1.18 H (0.52-1.04) mg/dL Estimated GFR 49.7 ML/MIN Glucose 146 H (74-106) mg/dL POC Glucometer (74 to 106) mg/dL Hemoglobin A1c (4.5-6.0) % Lactic Acid (0.4-2.0) Calcium 8.3 L (8.4-10.2) mg/dL Magnesium 2.1 (1.6-2.3) mg/dL Total Bilirubin 0.70 (0.2-1.3) mg/dL AST 38 H (14-36) U/L ALT 24 (0-35) U/L Alkaline Phosphatase 66 (38-126) U/L Troponin I < 0.012 (0.000-0.033) ng/mL NT-Pro-B Natriuret Pep 97.8 (<300) pg/mL Serum Total Protein 5.8 L (6.3-8.2) g/dL Albumin 3.6 (3.5-5.0) g/dL TSH 3rd Generation (0.470-4.680) mIU/L Urine Color (Yellow) Urine Appearance (Clear) Urine pH (4.6-8.0) Ur Specific [place] (1.005-1.030) Urine Protein (Negative) Urine Glucose (UA) (Negative) mg/dL Urine Ketones (Negative) Urine Blood (Negative) Urine Nitrite (Negative) Urine Bilirubin (Negative) Urine Urobilinogen (0.2) mg/dL Ur Leukocyte Esterase (Negative) U Hyaline Cast (Auto) (0-2) /LPF Urine Microscopic RBC (0-5) /HPF Urine Microscopic WBC (0-5) /HPF Ur Epithelial Cells (None Seen) /HPF Urine Bacteria (None Seen) /HPF Urine Culture Reflexed (NO) Influenza Type A Ag POSITIVE A (NEGATIVE) Influenza Type B Ag NEGATIVE (NEGATIVE) RSV (PCR) NEGATIVE (NEGATIVE) SARS-CoV-2 (PCR) NEGATIVE (NEGATIVE) Group A Strep Antibody (NEGATIVE) 01/14/25 01/14/25 01/14/25 Range/Units 11:10 11:10 11:10 WBC (3.98-10.04) x10^3/uL RBC (3.93-5.22) x10^6/uL Hgb (11.2-15.7) g/dL Hct (34.1-44.9) % MCV (79.4-94.8) fL MCH (25.6-32.2) pg MCHC (32.2-35.5) g/dL RDW (11.7-14.4) % Plt Count (182-369) x10^3/uL MPV (9.4-12.3) fL Gran % (34.0-71.1) % Immature Gran % (Auto) (0.001-0.429) % Nucleat RBC Rel Count (0.00-0.2) % Eos # (Auto) (0.04-0.36) x10^3/uL Immature Gran # (Auto) (0.001-0.031) x10^3u/L Absolute Lymphs (auto) (1.18-3.74) x10^3/uL Absolute Monos (auto) (0.24-0.86) x10^3/uL Absolute Nucleated RBC (0.00-0.012) x10^3u/L Lymphocytes % (19.3-51.7) % Monocytes % (4.7-12.5) % Eosinophils % (0.7-5.8) % Basophils % (0.1-1.2) % Absolute Granulocytes (1.56-6.13) x10^3/uL Basophils # (0.01-0.08) x10^3/uL D-Dimer 0.72 H* (0.0-0.50) mg/L Sodium (135-145) mmol/L Potassium (3.5-5.1) mmol/L Chloride (98-107) mmol/L Carbon Dioxide (22-30) mmol/L Anion Gap (5-15) MEQ/L BUN (7-17) mg/dL Creatinine (0.52-1.04) mg/dL Estimated GFR ML/MIN Glucose (74-106) mg/dL POC Glucometer (74 to 106) mg/dL Hemoglobin A1c 10.87 H (4.5-6.0) % Lactic Acid (0.4-2.0) Calcium (8.4-10.2) mg/dL Magnesium (1.6-2.3) mg/dL Total Bilirubin (0.2-1.3) mg/dL AST (14-36) U/L ALT (0-35) U/L Alkaline Phosphatase (38-126) U/L Troponin I (0.000-0.033) ng/mL NT-Pro-B Natriuret Pep (<300) pg/mL Serum Total Protein (6.3-8.2) g/dL Albumin (3.5-5.0) g/dL TSH 3rd Generation 1.047 (0.470-4.680) mIU/L Urine Color (Yellow) Urine Appearance (Clear) Urine pH (4.6-8.0) Ur Specific [place] (1.005-1.030) Urine Protein (Negative) Urine Glucose (UA) (Negative) mg/dL Urine Ketones (Negative) Urine Blood (Negative) Urine Nitrite (Negative) Urine Bilirubin (Negative) Urine Urobilinogen (0.2) mg/dL Ur Leukocyte Esterase (Negative) U Hyaline Cast (Auto) (0-2) /LPF Urine Microscopic RBC (0-5) /HPF Urine Microscopic WBC (0-5) /HPF Ur Epithelial Cells (None Seen) /HPF Urine Bacteria (None Seen) /HPF Urine Culture Reflexed (NO) Influenza Type A Ag (NEGATIVE) Influenza Type B Ag (NEGATIVE) RSV (PCR) (NEGATIVE) SARS-CoV-2 (PCR) (NEGATIVE) Group A Strep Antibody (NEGATIVE) 01/14/25 01/14/25 01/14/25 Range/Units 11:27 11:50 13:02 WBC 9.8 (3.98-10.04) x10^3/uL RBC 3.84 L (3.93-5.22) x10^6/uL Hgb 11.8 (11.2-15.7) g/dL Hct 35.6 (34.1-44.9) % MCV 92.7 (79.4-94.8) fL MCH 30.7 (25.6-32.2) pg MCHC 33.1 (32.2-35.5) g/dL RDW 12.0 (11.7-14.4) % Plt Count 128 L (182-369) x10^3/uL MPV 10.7 (9.4-12.3) fL Gran % 81.4 H (34.0-71.1) % Immature Gran % (Auto) 0.7 H (0.001-0.429) % Nucleat RBC Rel Count 0.0 (0.00-0.2) % Eos # (Auto) 0.03 L (0.04-0.36) x10^3/uL Immature Gran # (Auto) 0.07 H (0.001-0.031) x10^3u/L Absolute Lymphs (auto) 0.71 L (1.18-3.74) x10^3/uL Absolute Monos (auto) 1.00 H (0.24-0.86) x10^3/uL Absolute Nucleated RBC 0.00 (0.00-0.012) x10^3u/L Lymphocytes % 7.2 L (19.3-51.7) % Monocytes % 10.2 (4.7-12.5) % Eosinophils % 0.3 L (0.7-5.8) % Basophils % 0.2 (0.1-1.2) % Absolute Granulocytes 7.97 H (1.56-6.13) x10^3/uL Basophils # 0.02 (0.01-0.08) x10^3/uL D-Dimer (0.0-0.50) mg/L Sodium (135-145) mmol/L Potassium (3.5-5.1) mmol/L Chloride (98-107) mmol/L Carbon Dioxide (22-30) mmol/L Anion Gap (5-15) MEQ/L BUN (7-17) mg/dL Creatinine (0.52-1.04) mg/dL Estimated GFR ML/MIN Glucose (74-106) mg/dL POC Glucometer (74 to 106) mg/dL Hemoglobin A1c (4.5-6.0) % Lactic Acid 1.1 (0.4-2.0) Calcium (8.4-10.2) mg/dL Magnesium (1.6-2.3) mg/dL Total Bilirubin (0.2-1.3) mg/dL AST (14-36) U/L ALT (0-35) U/L Alkaline Phosphatase (38-126) U/L Troponin I < 0.012 (0.000-0.033) ng/mL NT-Pro-B Natriuret Pep (<300) pg/mL Serum Total Protein (6.3-8.2) g/dL Albumin (3.5-5.0) g/dL TSH 3rd Generation (0.470-4.680) mIU/L Urine Color (Yellow) Urine Appearance (Clear) Urine pH (4.6-8.0) Ur Specific [place] (1.005-1.030) Urine Protein (Negative) Urine Glucose (UA) (Negative) mg/dL Urine Ketones (Negative) Urine Blood (Negative) Urine Nitrite (Negative) Urine Bilirubin (Negative) Urine Urobilinogen (0.2) mg/dL Ur Leukocyte Esterase (Negative) U Hyaline Cast (Auto) (0-2) /LPF Urine Microscopic RBC (0-5) /HPF Urine Microscopic WBC (0-5) /HPF Ur Epithelial Cells (None Seen) /HPF Urine Bacteria (None Seen) /HPF Urine Culture Reflexed (NO) Influenza Type A Ag (NEGATIVE) Influenza Type B Ag (NEGATIVE) RSV (PCR) (NEGATIVE) SARS-CoV-2 (PCR) (NEGATIVE) Group A Strep Antibody (NEGATIVE) 01/14/25 01/14/25 01/14/25 Range/Units 14:50 15:50 16:13 WBC (3.98-10.04) x10^3/uL RBC (3.93-5.22) x10^6/uL Hgb (11.2-15.7) g/dL Hct (34.1-44.9) % MCV (79.4-94.8) fL MCH (25.6-32.2) pg MCHC (32.2-35.5) g/dL RDW (11.7-14.4) % Plt Count (182-369) x10^3/uL MPV (9.4-12.3) fL Gran % (34.0-71.1) % Immature Gran % (Auto) (0.001-0.429) % Nucleat RBC Rel Count (0.00-0.2) % Eos # (Auto) (0.04-0.36) x10^3/uL Immature Gran # (Auto) (0.001-0.031) x10^3u/L Absolute Lymphs (auto) (1.18-3.74) x10^3/uL Absolute Monos (auto) (0.24-0.86) x10^3/uL Absolute Nucleated RBC (0.00-0.012) x10^3u/L Lymphocytes % (19.3-51.7) % Monocytes % (4.7-12.5) % Eosinophils % (0.7-5.8) % Basophils % (0.1-1.2) % Absolute Granulocytes (1.56-6.13) x10^3/uL Basophils # (0.01-0.08) x10^3/uL D-Dimer (0.0-0.50) mg/L Sodium (135-145) mmol/L Potassium (3.5-5.1) mmol/L Chloride (98-107) mmol/L Carbon Dioxide (22-30) mmol/L Anion Gap (5-15) MEQ/L BUN (7-17) mg/dL Creatinine (0.52-1.04) mg/dL Estimated GFR ML/MIN Glucose (74-106) mg/dL POC Glucometer 103 (74 to 106) mg/dL Hemoglobin A1c (4.5-6.0) % Lactic Acid (0.4-2.0) Calcium (8.4-10.2) mg/dL Magnesium (1.6-2.3) mg/dL Total Bilirubin (0.2-1.3) mg/dL AST (14-36) U/L ALT (0-35) U/L Alkaline Phosphatase (38-126) U/L Troponin I (0.000-0.033) ng/mL NT-Pro-B Natriuret Pep (<300) pg/mL Serum Total Protein (6.3-8.2) g/dL Albumin (3.5-5.0) g/dL TSH 3rd Generation (0.470-4.680) mIU/L Urine Color Yellow (Yellow) Urine Appearance Clear (Clear) Urine pH 5.0 (4.6-8.0) Ur Specific [place] >=1.030 A (1.005-1.030) Urine Protein Negative (Negative) Urine Glucose (UA) >=1000 A (Negative) mg/dL Urine Ketones Trace A (Negative) Urine Blood Negative (Negative) Urine Nitrite Negative (Negative) Urine Bilirubin Negative (Negative) Urine Urobilinogen 0.2 (0.2) mg/dL Ur Leukocyte Esterase Negative (Negative) U Hyaline Cast (Auto) NONE SEEN (0-2) /LPF Urine Microscopic RBC 0-2 (0-5) /HPF Urine Microscopic WBC 0-2 (0-5) /HPF Ur Epithelial Cells None Seen (None Seen) /HPF Urine Bacteria None Seen (None Seen) /HPF Urine Culture Reflexed NO (NO) Influenza Type A Ag (NEGATIVE) Influenza Type B Ag (NEGATIVE) RSV (PCR) (NEGATIVE) SARS-CoV-2 (PCR) (NEGATIVE) Group A Strep Antibody NOT DETECTED (NEGATIVE) 01/14/25 01/14/25 Range/Units 19:00 20:49 WBC (3.98-10.04) x10^3/uL RBC (3.93-5.22) x10^6/uL Hgb (11.2-15.7) g/dL Hct (34.1-44.9) % MCV (79.4-94.8) fL MCH (25.6-32.2) pg MCHC (32.2-35.5) g/dL RDW (11.7-14.4) % Plt Count (182-369) x10^3/uL MPV (9.4-12.3) fL Gran % (34.0-71.1) % Immature Gran % (Auto) (0.001-0.429) % Nucleat RBC Rel Count (0.00-0.2) % Eos # (Auto) (0.04-0.36) x10^3/uL Immature Gran # (Auto) (0.001-0.031) x10^3u/L Absolute Lymphs (auto) (1.18-3.74) x10^3/uL Absolute Monos (auto) (0.24-0.86) x10^3/uL Absolute Nucleated RBC (0.00-0.012) x10^3u/L Lymphocytes % (19.3-51.7) % Monocytes % (4.7-12.5) % Eosinophils % (0.7-5.8) % Basophils % (0.1-1.2) % Absolute Granulocytes (1.56-6.13) x10^3/uL Basophils # (0.01-0.08) x10^3/uL D-Dimer (0.0-0.50) mg/L Sodium (135-145) mmol/L Potassium (3.5-5.1) mmol/L Chloride (98-107) mmol/L Carbon Dioxide (22-30) mmol/L Anion Gap (5-15) MEQ/L BUN (7-17) mg/dL Creatinine (0.52-1.04) mg/dL Estimated GFR ML/MIN Glucose (74-106) mg/dL POC Glucometer 115 H (74 to 106) mg/dL Hemoglobin A1c (4.5-6.0) % Lactic Acid (0.4-2.0) Calcium (8.4-10.2) mg/dL Magnesium (1.6-2.3) mg/dL Total Bilirubin (0.2-1.3) mg/dL AST (14-36) U/L ALT (0-35) U/L Alkaline Phosphatase (38-126) U/L Troponin I 0.015 (0.000-0.033) ng/mL NT-Pro-B Natriuret Pep (<300) pg/mL Serum Total Protein (6.3-8.2) g/dL Albumin (3.5-5.0) g/dL TSH 3rd Generation (0.470-4.680) mIU/L Urine Color (Yellow) Urine Appearance (Clear) Urine pH (4.6-8.0) Ur Specific [place] (1.005-1.030) Urine Protein (Negative) Urine Glucose (UA) (Negative) mg/dL Urine Ketones (Negative) Urine Blood (Negative) Urine Nitrite (Negative) Urine Bilirubin (Negative) Urine Urobilinogen (0.2) mg/dL Ur Leukocyte Esterase (Negative) U Hyaline Cast (Auto) (0-2) /LPF Urine Microscopic RBC (0-5) /HPF Urine Microscopic WBC (0-5) /HPF Ur Epithelial Cells (None Seen) /HPF Urine Bacteria (None Seen) /HPF Urine Culture Reflexed (NO) Influenza Type A Ag (NEGATIVE) Influenza Type B Ag (NEGATIVE) RSV (PCR) (NEGATIVE) SARS-CoV-2 (PCR) (NEGATIVE) Group A Strep Antibody (NEGATIVE) Microbiology 01/14/25 15:50 Gram Stain - Preliminary Sputum - Expectorant Accuchecks Date 01/14/25 Time 16:20 - Radiology Impressions Radiology Exams & Impressions: Radiology Procedures Category Date Time Status CHEST 1 VIEW (PORTABLE) Stat Exams 01/14/25 10:51 Completed PULMONARY PERF VENTILATION [NUCMED] Routine Exams 01/16/25 08:00 Ordered - Other Procedures and Tests Respiratory Therapy 01/14/25 13:57 EKG REPEAT IN AM Oxygen Nasal Cannula 2 lpm 01/14/25 16:13 Respiratory Therapy Assessment DAILY Telemedicine Encounter - Telemedicine Encounter Telemedicine Encounter: "The entirety of this encounter was performed via Telemedicine" This visit was performed using real-time audio and video connection between my location and thepatients locationwith the assistance of a surrogateat the p atients location. Written or verbal consent was obtained from the patient/guardian to perform this visit [email or web address]. Any patient questions regarding the telemedicine interaction were answered. ELIUD Encounter - ELIUD Encounter Attestation ELIUD Encounter Attestation: "CHAZ Harrison andhavediscussed pertinent aspects of their care with [facility] agree with the history, physical exam (any modifications based on my personal exam will be noted below), assessment, and plan as outlined in original note. Please see immediately below for my summary of findings and additional assessment and plan along with any meaningful corrections/explanations to the Subjective/Objective portions of the ELIUD note will be noted." My portion of the encounter took place via telemedicine. -Acute hypoxic respiratory failure due to flu A. Patient denies history of smoking and there is no report of chronic lung disease. CXR with no acute findings. Treat with oxygen support, nebs, empiric antibiotics given hypoxia and comorbidities.
[2025-01-14] MEDS ORDERED: HUMALOG SQ PRN (14:30)
[2025-01-14] MEDS: ROCEPHIN 1 GM / 100 ML NaCl 1 GM/100 ML IVPB IV SCH (15:22)
[2025-01-14] MEDS: Sodium Chloride 0.9% 1000 ML 1,000 ML IV SCH (15:22)
[2025-01-14] MEDS: ZITHROMAX IV*** 500 MG in Sodium Chloride 0.9% 250 ML 250 ML IV SCH (15:59)
[2025-01-14 16:12] LABS: Appearance Clear (Clear); Bacteria None Seen /HPF (None Seen); Bilirubin Negative (Negative); Blood Negative (Negative); Epithelial Cells None Seen /HPF (None Seen); Glucose, Urine >=1000 mg/dL (Negative); Hyaline Casts NONE SEEN /LPF (0-2); Ketones Trace (Negative); Leukocyte Esterase Negative (Negative); Nitrite Negative (Negative); Protein,Urine Dip Negative (Negative); RBC 0-2 /HPF (0-5); Specific Gravity >=1.030 (1.005-1.030); Urobilinogen 0.2 mg/dL (0.2); WBC 0-2 /HPF (0-5)
[2025-01-14] MEDS: TYLENOL 325 MG PO PRN (19:54)
[2025-01-14] MEDS: Robitussin AC Syrup Unit Dose Cup PO PRN (22:00)
[2025-01-14] MEDS: LIPITOR 40MG PO SCH (22:00)
[2025-01-14] MEDS: Coreg PO SCH (22:00)
[2025-01-14] MEDS: Lantus Insulin SQ SCH (22:00)
[2025-01-14] MEDS: DESYREL 50 MG PO SCH (22:00)
[2025-01-15 05:00] LABS: Absolute Neutrophil Ct (ANC) 11.58 x10^3/uL (1.56-6.13); BASOPHIL % 0.1 % (0.1-1.2); Basophil (Absolute #) 0.02 x10^3/uL (0.01-0.08); Eosinophil % 0.1 % (0.7-5.8); Eosinophil (Absolute #) 0.01 x10^3/uL (0.04-0.36); Hematocrit 30.8 % (34.1-44.9); Hemoglobin 10.1 g/dL (11.2-15.7); IMMATURE GRAN # 0.09 x10^3u/L (0.001-0.031); IMMATURE GRAN % 0.6 % (0.001-0.429); Lymphocyte (Absolute #) 2.13 x10^3/uL (1.18-3.74); Lymphocytes % 14.2 % (19.3-51.7); Mean Cell Volume 94.8 fL (79.4-94.8); Mean Corpuscular Hemoglobin 31.1 pg (25.6-32.2); Mean Corpuscular Hgb Concent. 32.8 g/dL (32.2-35.5); Mean Platelet Volume 11.4 fL (9.4-12.3); Monocyte (Absolute #) 1.14 x10^3/uL (0.24-0.86); Monocytes % 7.6 % (4.7-12.5); Neutrophil % 77.4 % (34.0-71.1); Platelet Count 112 x10^3/uL (182-369); Red Blood Count 3.25 x10^6/uL (3.93-5.22); Red Cell Distribution Width 12.4 % (11.7-14.4)
--- NOTE | 2025-01-15 05:20 | PCM.NOTE ---
Date and Time: 01/15/25 0519 Subjective Assessment: is a 69 year old female with a history of stroke, COPD, coronary artery disease (status post three stents with prior myocardial infarction), hypertension, type 2 diabetes mellitus, hyperlipidemia, hypothyroidism, and GERD presents with a four-day history of progressive shortness of breath,nausea, sore throat, vomiting, diarrhea, fever, and cough. She recently returned from an [place]-day cruise, during which she developed worsening respiratory symptoms over the last three days. Several contacts on the cruise are also sick. The patient does not use supplemental oxygen at baseline but required 2L nasal cannula to maintain oxygen saturation of 96-97%. However, she becomes hypoxic to 87% on gay m air with ambulation. During my interview patient is on RA with spo2 at 94%. She denies cp or abdominal pain. On arrival to the emergency department, she was noted to be tachycardic, febrile, and hypoxic. A portable chest X-ray demonstrated no acute cardiopulmonary abnormalities. Laboratory studies were significant for mild thrombocytopenia, an elevated creatinine of 1.18 (baseline 1.1-1.2), and a positive influenza A test. Given her clinical presentation, she is admitted for acute hypoxic respiratory failure secondary to influenza A/COPD exacerbation. 01/15/25: Met with patient bedside. Febrile overnight. Endorses continued weakness. Cough productive with yellow sputum. Dyspnea improved. Sputum culture pending final results with gram+cocci and gram - rods. No nausea/vomiting overnight. - Review of Systems Constitutional: Fever, Chills, Lethargy, Weakness Eyes: No Symptoms Ears, Nose, & Throat: Throat Pain Respiratory: Cough, Short Of Breath Cardiac: No Symptoms Abdominal/Gastrointestinal: No Symptoms Genitourinary Symptoms: No Symptoms Musculoskeletal: No Symptoms Skin: No Symptoms Neurological: No Symptoms Psychological: No Symptoms Endocrine: No Symptoms Hematologic/Lymphatic: No Symptoms Immunological/Allergic: No Symptoms Objective Exam General Appearance: no apparent distress Neurologic Exam: alert, oriented x 3, cooperative Skin Exam: normal color Eye Exam: PERRL Ears, Nose, Throat Exam: normal ENT inspection Neck Exam: normal inspection Respiratory Exam: crackles/rales Cardiovascular Exam: regular rate/rhythm, normal heart sounds Gastrointestinal/Abdomen Exam: soft, normal bowel sounds Extremity Exam: normal inspection Back Exam: normal inspection Pelvic Exam: deferred Rectal Exam: deferred Objective Data Vital Signs: Vital Signs - 24 hr Temp Pulse Resp BP BP Pulse Ox 01/15/25 04:00 98.5 F 74 19 120/58 95 01/15/25 00:00 98.1 F 67 16 81/44 95 01/14/25 20:11 101.6 F 82 17 126/80 95 01/14/25 18:35 89 20 90 L 01/14/25 16:20 97.6 F 86 16 164/82 94 L 01/14/25 16:13 84 16 92 L 01/14/25 14:09 97.6 F 86 16 164/82 94 L 01/14/25 13:57 97.6 F 86 16 164/82 94 L 01/14/25 13:00 85 16 141/77 93 L 01/14/25 12:30 85 22 158/85 88 L 01/14/25 12:00 82 16 161/72 01/14/25 11:30 83 24 133/73 01/14/25 11:00 88 18 165/80 92 L 01/14/25 10:50 95 01/14/25 10:41 97 H 12 174/88 92 L 01/14/25 10:40 101.5 F 104 H 16 174/88 91 L Pain Assessment - Last Documented Pain Intensity 3 Intake and Output: Intake & Output 01/12/25 01/13/25 01/14/25 01/15/25 11:59 11:59 11:59 11:59 Intake Total 885 Output Total 600 Balance 285 Weight 58.4 kg 56.7 kg Lab Results: Lab Results-Last 24 Hours 01/14/25 01/14/25 01/14/25 Range/Units 11:10 11:10 11:10 WBC (3.98-10.04) x10^3/uL RBC (3.93-5.22) x10^6/uL Hgb (11.2-15.7) g/dL Hct (34.1-44.9) % MCV (79.4-94.8) fL MCH (25.6-32.2) pg MCHC (32.2-35.5) g/dL RDW (11.7-14.4) % Plt Count (182-369) x10^3/uL MPV (9.4-12.3) fL Gran % (34.0-71.1) % Immature Gran % (Auto) (0.001-0.429) % Nucleat RBC Rel Count (0.00-0.2) % Eos # (Auto) (0.04-0.36) x10^3/uL Immature Gran # (Auto) (0.001-0.031) x10^3u/L Absolute Lymphs (auto) (1.18-3.74) x10^3/uL Absolute Monos (auto) (0.24-0.86) x10^3/uL Absolute Nucleated RBC (0.00-0.012) x10^3u/L Lymphocytes % (19.3-51.7) % Monocytes % (4.7-12.5) % Eosinophils % (0.7-5.8) % Basophils % (0.1-1.2) % Absolute Granulocytes (1.56-6.13) x10^3/uL Basophils # (0.01-0.08) x10^3/uL D-Dimer (0.0-0.50) mg/L Sodium 137 (135-145) mmol/L Potassium 4.3 (3.5-5.1) mmol/L Chloride 106 (98-107) mmol/L Carbon Dioxide 22 (22-30) mmol/L Anion Gap 12.8 (5-15) MEQ/L BUN 29 H (7-17) mg/dL Creatinine 1.18 H (0.52-1.04) mg/dL Estimated GFR 49.7 ML/MIN Glucose 146 H (74-106) mg/dL POC Glucometer (74 to 106) mg/dL Hemoglobin A1c (4.5-6.0) % Lactic Acid (0.4-2.0) Calcium 8.3 L (8.4-10.2) mg/dL Magnesium 2.1 (1.6-2.3) mg/dL Total Bilirubin 0.70 (0.2-1.3) mg/dL AST 38 H (14-36) U/L ALT 24 (0-35) U/L Alkaline Phosphatase 66 (38-126) U/L Troponin I < 0.012 (0.000-0.033) ng/mL NT-Pro-B Natriuret Pep 97.8 (<300) pg/mL Serum Total Protein 5.8 L (6.3-8.2) g/dL Albumin 3.6 (3.5-5.0) g/dL TSH 3rd Generation (0.470-4.680) mIU/L Urine Color (Yellow) Urine Appearance (Clear) Urine pH (4.6-8.0) Ur Specific [place] (1.005-1.030) Urine Protein (Negative) Urine Glucose (UA) (Negative) mg/dL Urine Ketones (Negative) Urine Blood (Negative) Urine Nitrite (Negative) Urine Bilirubin (Negative) Urine Urobilinogen (0.2) mg/dL Ur Leukocyte Esterase (Negative) U Hyaline Cast (Auto) (0-2) /LPF Urine Microscopic RBC (0-5) /HPF Urine Microscopic WBC (0-5) /HPF Ur Epithelial Cells (None Seen) /HPF Urine Bacteria (None Seen) /HPF Urine Culture Reflexed (NO) Influenza Type A Ag POSITIVE A (NEGATIVE) Influenza Type B Ag NEGATIVE (NEGATIVE) RSV (PCR) NEGATIVE (NEGATIVE) SARS-CoV-2 (PCR) NEGATIVE (NEGATIVE) Group A Strep Antibody (NEGATIVE) 01/14/25 01/14/25 01/14/25 Range/Units 11:10 11:10 11:10 WBC (3.98-10.04) x10^3/uL RBC (3.93-5.22) x10^6/uL Hgb (11.2-15.7) g/dL Hct (34.1-44.9) % MCV (79.4-94.8) fL MCH (25.6-32.2) pg MCHC (32.2-35.5) g/dL RDW (11.7-14.4) % Plt Count (182-369) x10^3/uL MPV (9.4-12.3) fL Gran % (34.0-71.1) % Immature Gran % (Auto) (0.001-0.429) % Nucleat RBC Rel Count (0.00-0.2) % Eos # (Auto) (0.04-0.36) x10^3/uL Immature Gran # (Auto) (0.001-0.031) x10^3u/L Absolute Lymphs (auto) (1.18-3.74) x10^3/uL Absolute Monos (auto) (0.24-0.86) x10^3/uL Absolute Nucleated RBC (0.00-0.012) x10^3u/L Lymphocytes % (19.3-51.7) % Monocytes % (4.7-12.5) % Eosinophils % (0.7-5.8) % Basophils % (0.1-1.2) % Absolute Granulocytes (1.56-6.13) x10^3/uL Basophils # (0.01-0.08) x10^3/uL D-Dimer 0.72 H* (0.0-0.50) mg/L Sodium (135-145) mmol/L Potassium (3.5-5.1) mmol/L Chloride (98-107) mmol/L Carbon Dioxide (22-30) mmol/L Anion Gap (5-15) MEQ/L BUN (7-17) mg/dL Creatinine (0.52-1.04) mg/dL Estimated GFR ML/MIN Glucose (74-106) mg/dL POC Glucometer (74 to 106) mg/dL Hemoglobin A1c 10.87 H (4.5-6.0) % Lactic Acid (0.4-2.0) Calcium (8.4-10.2) mg/dL Magnesium (1.6-2.3) mg/dL Total Bilirubin (0.2-1.3) mg/dL AST (14-36) U/L ALT (0-35) U/L Alkaline Phosphatase (38-126) U/L Troponin I (0.000-0.033) ng/mL NT-Pro-B Natriuret Pep (<300) pg/mL Serum Total Protein (6.3-8.2) g/dL Albumin (3.5-5.0) g/dL TSH 3rd Generation 1.047 (0.470-4.680) mIU/L Urine Color (Yellow) Urine Appearance (Clear) Urine pH (4.6-8.0) Ur Specific [place] (1.005-1.030) Urine Protein (Negative) Urine Glucose (UA) (Negative) mg/dL Urine Ketones (Negative) Urine Blood (Negative) Urine Nitrite (Negative) Urine Bilirubin (Negative) Urine Urobilinogen (0.2) mg/dL Ur Leukocyte Esterase (Negative) U Hyaline Cast (Auto) (0-2) /LPF Urine Microscopic RBC (0-5) /HPF Urine Microscopic WBC (0-5) /HPF Ur Epithelial Cells (None Seen) /HPF Urine Bacteria (None Seen) /HPF Urine Culture Reflexed (NO) Influenza Type A Ag (NEGATIVE) Influenza Type B Ag (NEGATIVE) RSV (PCR) (NEGATIVE) SARS-CoV-2 (PCR) (NEGATIVE) Group A Strep Antibody (NEGATIVE) 01/14/25 01/14/25 01/14/25 Range/Units 11:27 11:50 13:02 WBC 9.8 (3.98-10.04) x10^3/uL RBC 3.84 L (3.93-5.22) x10^6/uL Hgb 11.8 (11.2-15.7) g/dL Hct 35.6 (34.1-44.9) % MCV 92.7 (79.4-94.8) fL MCH 30.7 (25.6-32.2) pg MCHC 33.1 (32.2-35.5) g/dL RDW 12.0 (11.7-14.4) % Plt Count 128 L (182-369) x10^3/uL MPV 10.7 (9.4-12.3) fL Gran % 81.4 H (34.0-71.1) % Immature Gran % (Auto) 0.7 H (0.001-0.429) % Nucleat RBC Rel Count 0.0 (0.00-0.2) % Eos # (Auto) 0.03 L (0.04-0.36) x10^3/uL Immature Gran # (Auto) 0.07 H (0.001-0.031) x10^3u/L Absolute Lymphs (auto) 0.71 L (1.18-3.74) x10^3/uL Absolute Monos (auto) 1.00 H (0.24-0.86) x10^3/uL Absolute Nucleated RBC 0.00 (0.00-0.012) x10^3u/L Lymphocytes % 7.2 L (19.3-51.7) % Monocytes % 10.2 (4.7-12.5) % Eosinophils % 0.3 L (0.7-5.8) % Basophils % 0.2 (0.1-1.2) % Absolute Granulocytes 7.97 H (1.56-6.13) x10^3/uL Basophils # 0.02 (0.01-0.08) x10^3/uL D-Dimer (0.0-0.50) mg/L Sodium (135-145) mmol/L Potassium (3.5-5.1) mmol/L Chloride (98-107) mmol/L Carbon Dioxide (22-30) mmol/L Anion Gap (5-15) MEQ/L BUN (7-17) mg/dL Creatinine (0.52-1.04) mg/dL Estimated GFR ML/MIN Glucose (74-106) mg/dL POC Glucometer (74 to 106) mg/dL Hemoglobin A1c (4.5-6.0) % Lactic Acid 1.1 (0.4-2.0) Calcium (8.4-10.2) mg/dL Magnesium (1.6-2.3) mg/dL Total Bilirubin (0.2-1.3) mg/dL AST (14-36) U/L ALT (0-35) U/L Alkaline Phosphatase (38-126) U/L Troponin I < 0.012 (0.000-0.033) ng/mL NT-Pro-B Natriuret Pep (<300) pg/mL Serum Total Protein (6.3-8.2) g/dL Albumin (3.5-5.0) g/dL TSH 3rd Generation (0.470-4.680) mIU/L Urine Color (Yellow) Urine Appearance (Clear) Urine pH (4.6-8.0) Ur Specific [place] (1.005-1.030) Urine Protein (Negative) Urine Glucose (UA) (Negative) mg/dL Urine Ketones (Negative) Urine Blood (Negative) Urine Nitrite (Negative) Urine Bilirubin (Negative) Urine Urobilinogen (0.2) mg/dL Ur Leukocyte Esterase (Negative) U Hyaline Cast (Auto) (0-2) /LPF Urine Microscopic RBC (0-5) /HPF Urine Microscopic WBC (0-5) /HPF Ur Epithelial Cells (None Seen) /HPF Urine Bacteria (None Seen) /HPF Urine Culture Reflexed (NO) Influenza Type A Ag (NEGATIVE) Influenza Type B Ag (NEGATIVE) RSV (PCR) (NEGATIVE) SARS-CoV-2 (PCR) (NEGATIVE) Group A Strep Antibody (NEGATIVE) 01/14/25 01/14/25 01/14/25 Range/Units 14:50 15:50 16:13 WBC (3.98-10.04) x10^3/uL RBC (3.93-5.22) x10^6/uL Hgb (11.2-15.7) g/dL Hct (34.1-44.9) % MCV (79.4-94.8) fL MCH (25.6-32.2) pg MCHC (32.2-35.5) g/dL RDW (11.7-14.4) % Plt Count (182-369) x10^3/uL MPV (9.4-12.3) fL Gran % (34.0-71.1) % Immature Gran % (Auto) (0.001-0.429) % Nucleat RBC Rel Count (0.00-0.2) % Eos # (Auto) (0.04-0.36) x10^3/uL Immature Gran # (Auto) (0.001-0.031) x10^3u/L Absolute Lymphs (auto) (1.18-3.74) x10^3/uL Absolute Monos (auto) (0.24-0.86) x10^3/uL Absolute Nucleated RBC (0.00-0.012) x10^3u/L Lymphocytes % (19.3-51.7) % Monocytes % (4.7-12.5) % Eosinophils % (0.7-5.8) % Basophils % (0.1-1.2) % Absolute Granulocytes (1.56-6.13) x10^3/uL Basophils # (0.01-0.08) x10^3/uL D-Dimer (0.0-0.50) mg/L Sodium (135-145) mmol/L Potassium (3.5-5.1) mmol/L Chloride (98-107) mmol/L Carbon Dioxide (22-30) mmol/L Anion Gap (5-15) MEQ/L BUN (7-17) mg/dL Creatinine (0.52-1.04) mg/dL Estimated GFR ML/MIN Glucose (74-106) mg/dL POC Glucometer 103 (74 to 106) mg/dL Hemoglobin A1c (4.5-6.0) % Lactic Acid (0.4-2.0) Calcium (8.4-10.2) mg/dL Magnesium (1.6-2.3) mg/dL Total Bilirubin (0.2-1.3) mg/dL AST (14-36) U/L ALT (0-35) U/L Alkaline Phosphatase (38-126) U/L Troponin I (0.000-0.033) ng/mL NT-Pro-B Natriuret Pep (<300) pg/mL Serum Total Protein (6.3-8.2) g/dL Albumin (3.5-5.0) g/dL TSH 3rd Generation (0.470-4.680) mIU/L Urine Color Yellow (Yellow) Urine Appearance Clear (Clear) Urine pH 5.0 (4.6-8.0) Ur Specific [place] >=1.030 A (1.005-1.030) Urine Protein Negative (Negative) Urine Glucose (UA) >=1000 A (Negative) mg/dL Urine Ketones Trace A (Negative) Urine Blood Negative (Negative) Urine Nitrite Negative (Negative) Urine Bilirubin Negative (Negative) Urine Urobilinogen 0.2 (0.2) mg/dL Ur Leukocyte Esterase Negative (Negative) U Hyaline Cast (Auto) NONE SEEN (0-2) /LPF Urine Microscopic RBC 0-2 (0-5) /HPF Urine Microscopic WBC 0-2 (0-5) /HPF Ur Epithelial Cells None Seen (None Seen) /HPF Urine Bacteria None Seen (None Seen) /HPF Urine Culture Reflexed NO (NO) Influenza Type A Ag (NEGATIVE) Influenza Type B Ag (NEGATIVE) RSV (PCR) (NEGATIVE) SARS-CoV-2 (PCR) (NEGATIVE) Group A Strep Antibody NOT DETECTED (NEGATIVE) 01/14/25 01/14/25 01/15/25 Range/Units 19:00 20:49 04:55 WBC 15.0 H (3.98-10.04) x10^3/uL RBC 3.25 L (3.93-5.22) x10^6/uL Hgb 10.1 L (11.2-15.7) g/dL Hct 30.8 L (34.1-44.9) % MCV 94.8 (79.4-94.8) fL MCH 31.1 (25.6-32.2) pg MCHC 32.8 (32.2-35.5) g/dL RDW 12.4 (11.7-14.4) % Plt Count 112 L (182-369) x10^3/uL MPV 11.4 (9.4-12.3) fL Gran % 77.4 H (34.0-71.1) % Immature Gran % (Auto) 0.6 H (0.001-0.429) % Nucleat RBC Rel Count 0.0 (0.00-0.2) % Eos # (Auto) 0.01 L (0.04-0.36) x10^3/uL Immature Gran # (Auto) 0.09 H (0.001-0.031) x10^3u/L Absolute Lymphs (auto) 2.13 (1.18-3.74) x10^3/uL Absolute Monos (auto) 1.14 H (0.24-0.86) x10^3/uL Absolute Nucleated RBC 0.00 (0.00-0.012) x10^3u/L Lymphocytes % 14.2 L (19.3-51.7) % Monocytes % 7.6 (4.7-12.5) % Eosinophils % 0.1 L (0.7-5.8) % Basophils % 0.1 (0.1-1.2) % Absolute Granulocytes 11.58 H (1.56-6.13) x10^3/uL Basophils # 0.02 (0.01-0.08) x10^3/uL D-Dimer (0.0-0.50) mg/L Sodium (135-145) mmol/L Potassium (3.5-5.1) mmol/L Chloride (98-107) mmol/L Carbon Dioxide (22-30) mmol/L Anion Gap (5-15) MEQ/L BUN (7-17) mg/dL Creatinine (0.52-1.04) mg/dL Estimated GFR ML/MIN Glucose (74-106) mg/dL POC Glucometer 115 H (74 to 106) mg/dL Hemoglobin A1c (4.5-6.0) % Lactic Acid (0.4-2.0) Calcium (8.4-10.2) mg/dL Magnesium (1.6-2.3) mg/dL Total Bilirubin (0.2-1.3) mg/dL AST (14-36) U/L ALT (0-35) U/L Alkaline Phosphatase (38-126) U/L Troponin I 0.015 (0.000-0.033) ng/mL NT-Pro-B Natriuret Pep (<300) pg/mL Serum Total Protein (6.3-8.2) g/dL Albumin (3.5-5.0) g/dL TSH 3rd Generation (0.470-4.680) mIU/L Urine Color (Yellow) Urine Appearance (Clear) Urine pH (4.6-8.0) Ur Specific [place] (1.005-1.030) Urine Protein (Negative) Urine Glucose (UA) (Negative) mg/dL Urine Ketones (Negative) Urine Blood (Negative) Urine Nitrite (Negative) Urine Bilirubin (Negative) Urine Urobilinogen (0.2) mg/dL Ur Leukocyte Esterase (Negative) U Hyaline Cast (Auto) (0-2) /LPF Urine Microscopic RBC (0-5) /HPF Urine Microscopic WBC (0-5) /HPF Ur Epithelial Cells (None Seen) /HPF Urine Bacteria (None Seen) /HPF Urine Culture Reflexed (NO) Influenza Type A Ag (NEGATIVE) Influenza Type B Ag (NEGATIVE) RSV (PCR) (NEGATIVE) SARS-CoV-2 (PCR) (NEGATIVE) Group A Strep Antibody (NEGATIVE) Radiology Exams: Radiology Procedures Category Date Time Status CHEST 1 VIEW (PORTABLE) Stat Exams 01/14/25 10:51 Completed PULMONARY PERF VENTILATION [NUCMED] Routine Exams 01/16/25 08:00 Ordered Multi-Disciplinary Progress Notes: Multi-Disciplinary Progress Notes 01/14/25 13:07 Respiratory Note by Anay Bey 1345 N/C 2LPM AT REST 94%. ROOM AIR RESTING SPO2 92%. ROOM AIR AMBULATION SPO2 87%. PT COMPLAINS OF NO SOB. MAKES COMENT SHE HAS TO LEAVE BY [id number] Initialized on 01/14/25 13:07 - END OF NOTE Assessment/Plan (1) Acute respiratory failure with hypoxia Current Visit: Yes Status: Acute Assessment & Plan: -CXR reviewed demonstrating no acute cardiopulmonary abnormalities -2/2 to FluA/COPD exacerbation -DDimer -Supplemental oxygen with goal spo2 > 91% -Nebs/INH -RT eval and treat -Out of window for tamiflu -Ceftriaxone/azithromycin -Consider CT if no improvement -Supportive care with anti-pyrectic/anti-emetics, IVF, cough suppressant 01/15/25: -continue ceftriaxone/azith -supportive care -Sputum culture with gram+cocci and gram - rods - follw Code(s): J96.01 - ACUTE RESPIRATORY FAILURE WITH HYPOXIA (2) Influenza A H1N1 infection Current Visit: Yes Status: Acute Assessment & Plan: -see ARF Code(s): J10.1 - FLU DUE TO OTH IDENT INFLUENZA VIRUS W OTH RESP MANIFEST (3) COPD exacerbation Current Visit: Yes Status: Acute Assessment & Plan: -see arf Code(s): J44.1 - CHRONIC OBSTRUCTIVE PULMONARY DISEASE W (ACUTE) EXACERBATION (4) CAD (coronary artery disease) Current Visit: Yes Status: Acute Assessment & Plan: -w/stent placement -Continue home meds Code(s): I25.10 - ATHSCL HEART DISEASE OF [place] CORONARY ARTERY W/O ANG PCTRS (5) Type 2 diabetes mellitus Current Visit: Yes Status: Acute Assessment & Plan: -ADA diet -A1c 10.87 -SSI/glargine (6) HLD (hyperlipidemia) Current Visit: Yes Status: Acute Assessment & Plan: -continue statin Code(s): E78.5 - HYPERLIPIDEMIA, UNSPECIFIED (7) GERD (gastroesophageal reflux disease) Current Visit: Yes Status: Acute Assessment & Plan: -Protonix Code(s): K21.9 - GASTRO-ESOPHAGEAL REFLUX DISEASE WITHOUT ESOPHAGITIS (8) SUSAN (acute kidney injury) Current Visit: No Status: Acute Assessment & Plan: -Mild - baseline appears to be around 1.1-1.2 although the most recent labs on file are several years old -gentle hydration at 50ml/hr -Monitor renal/lytes -avoid nephrotoxic agents 01/14: -Creat reviewed at 1.29- continue IVF Code(s): N17.9 - ACUTE KIDNEY FAILURE, UNSPECIFIED (9) Hypertension Current Visit: No Status: Acute Assessment & Plan: -Continue home meds and monitor closely for any adjustments needed Code(s): I10 - ESSENTIAL (PRIMARY) HYPERTENSION (10) Nausea and vomiting Current Visit: Yes Status: Acute Assessment & Plan: - most likely secondary to FluA -IVF - anti-emetics Code(s): R11.2 - NAUSEA WITH VOMITING, UNSPECIFIED (11) Diarrhea Current Visit: Yes Status: Acute Assessment & Plan: -CDIFF -Stool cultures -hold immodium until cdiff results -IVF 01/14: -Cdiff pending -no further diarrheal episodes Code(s): R19.7 - DIARRHEA, UNSPECIFIED (12) Hypothyroid Current Visit: No Status: Acute Assessment & Plan: -continue home meds VTE: Lovenox PPI: Protonix Dispo: 1-2 days Code status: Full Code(s): J96.01 - ACUTE RESPIRATORY FAILURE WITH HYPOXIA (2) Influenza A H1N1 infection Current Visit: Yes Status: Acute Code(s): J10.1 - FLU DUE TO OTH IDENT INFLUENZA VIRUS W OTH RESP MANIFEST (3) COPD exacerbation Current Visit: Yes Status: Acute Code(s): J44.1 - CHRONIC OBSTRUCTIVE PULMONARY DISEASE W (ACUTE) EXACERBATION (4) CAD (coronary artery disease) Current Visit: Yes Status: Acute Code(s): I25.10 - ATHSCL HEART DISEASE OF [place] CORONARY ARTERY W/O ANG PCTRS (5) Type 2 diabetes mellitus Current Visit: Yes Status: Acute (6) HLD (hyperlipidemia) Current Visit: Yes Status: Acute Code(s): E78.5 - HYPERLIPIDEMIA, UNSPECIFIED (7) GERD (gastroesophageal reflux disease) Current Visit: Yes Status: Acute Code(s): K21.9 - GASTRO-ESOPHAGEAL REFLUX DISEASE WITHOUT ESOPHAGITIS (8) SUSAN (acute kidney injury) Current Visit: No Status: Acute Code(s): N17.9 - ACUTE KIDNEY FAILURE, UNSPECIFIED (9) Hypertension Current Visit: No Status: Acute Code(s): I10 - ESSENTIAL (PRIMARY) HYPERTENSION (10) Nausea and vomiting Current Visit: Yes Status: Acute Code(s): R11.2 - NAUSEA WITH VOMITING, UNSPECIFIED (11) Diarrhea Current Visit: Yes Status: Acute Code(s): R19.7 - DIARRHEA, UNSPECIFIED (12) Hypothyroid Current Visit: No Status: Acute Code(s): E03.9 - HYPOTHYROIDISM, UNSPECIFIED
[2025-01-15 05:34] LABS: ALBUMIN 2.9 g/dL (3.5-5.0); ANION GAP 12.5 MEQ/L (5-15); BILIRUBIN,TOTAL 0.6 mg/dL (0.2-1.3); Calcium 7.2 mg/dL (8.4-10.2); Creatinine 1 1.29 mg/dL (0.52-1.04); EST GLOMERULAR FILTRATION RATE 44.7 ML/MIN; Potassium 3.7 mmol/L (3.5-5.1); Total Protein 5.1 g/dL (6.3-8.2)
[2025-01-15] MEDS: SYNTHROID 75 MCG PO SCH (09:28)
[2025-01-15] MEDS: PLAVIX Tablet PO SCH (09:28)
[2025-01-15] MEDS ORDERED: DIOVAN 80 MG PO SCH (10:00)
[2025-01-15] MEDS ORDERED: NON-FORMULARY ITEM (Valsartan [Diovan] 320 MG Tablet) PO SCH (10:00)
[2025-01-15] MEDS: DUONEB 0.5-3 MG/3 ml Neb IH PRN (19:50)
[2025-01-16 05:50] LABS: Hematocrit 28.9 % (34.1-44.9); Hemoglobin 9.2 g/dL (11.2-15.7); Mean Cell Volume 97.6 fL (79.4-94.8); Mean Corpuscular Hemoglobin 31.1 pg (25.6-32.2); Mean Corpuscular Hgb Concent. 31.8 g/dL (32.2-35.5); Mean Platelet Volume 11.1 fL (9.4-12.3); Platelet Count 103 x10^3/uL (182-369); Red Blood Count 2.96 x10^6/uL (3.93-5.22); Red Cell Distribution Width 12.8 % (11.7-14.4); White Blood Count 13.8 x10^3/uL (3.98-10.04)
[2025-01-16 06:05] LABS: ALBUMIN 2.6 g/dL (3.5-5.0); ANION GAP 11.1 MEQ/L (5-15); BILIRUBIN,TOTAL 0.5 mg/dL (0.2-1.3); Creatinine 1 0.96 mg/dL (0.52-1.04); EST GLOMERULAR FILTRATION RATE 63.7 ML/MIN; Potassium 4.1 mmol/L (3.5-5.1); Total Protein 4.8 g/dL (6.3-8.2)
[2025-01-16 08:05] LABS: BAND 2 % (0.0-2.0); Lymphocytes 9 % (19.3-51.7); Monocyte 4 % (4.7-12.5); Neutrophils 85 % (34.0-71.1); Total Cells Counted 100
[2025-01-16 08:06] LABS: Platelet Estimate NORMAL (NORMAL)
--- NOTE | 2025-01-16 10:29 | XRAY ---
Indication: Short of breath 1 week. Elevated d-dimer. Influenza A. Comparison: January 14, 2025 PA/lateral chest demonstrates new mild right middle lobe infiltrate/atelectasis. No consolidation/large effusion. Heart not enlarged. Bony thorax intact again with osteopenia and degenerative changes.
--- NOTE | 2025-01-16 10:31 | XRAY ---
Indication: Elevated d-dimer. Influenza A. Patient received 5.6 mCi technetium 99 MAA for the perfusion portion exam with multiple planar images obtained. Ventilation portion not performed due to known influenza A. Comparison: None Right middle lobe demonstrates small curvilinear subsegmental perfusion defect, best on lateral plain. No other fixed or reversible perfusion defects. Impression: Curvilinear subsegmental perfusion defect right middle lobe corresponding to same day chest radiograph abnormality. Low probability for pulmonary embolus.
--- NOTE | 2025-01-16 12:01 | PCM.DS ---
Discharge Summary Date of Admission: 01/14/25 13:55 Date of Discharge: 01/16/25 Admitting Physician: RAMON YANES MD Primary Care Provider: FARHANA ARMENTA Allergies Allergies No Known Drug Allergies Allergy (Verified 01/14/25 14:05) Hospital Summary - Hospital Course Hospital Course: is T a 69-year-old female with a complex medical history, including stroke, COPD, coronary artery disease, diabetes, and hyperlipidemia, who presented 01/14/25 with a four-day history of progressive respiratory symptoms, including shortness of breath, cough, fever, and gastrointestinal distress, following a recent cruise. She was found to be hypoxic, requiring 2L of oxygen to maintain adequate saturation. Laboratory tests confirmed influenza A, and imaging revealed a mild right middle lobe infiltrate/atelectasis. VQ scan negative for PE. She was diagnosed with acute hypoxic respiratory failure secondary to influenza A , pneumonia, and a COPD exacerbation. The patient was treated IP with oxygen, nebulizer treatments, prednisone, and ceftriaxone, and azithromycin. Sputum cultures indicating possible Haemophilus species. Her condition improved, with resolution of gastrointestinal symptoms, improvement of her respiratory status, and she became afebrile. She is requesting discharge today and is stable with plans for home oxygen, continued steroid treatment, and Augmentin. Advised follow up with PCP. Discharge Note New Diagnosis: Influenza A/pneumonia New Medications: Augmentin Follow Up: PCP Results pending: Final sputum culture I spent 35 minutes [id number] with the patient on the day of discharge performing discharge exam, discussing hospital stay and discharge instructions with patient and caregivers, preparation of discharge records, prescriptions & referral forms and addressing any questions/concerns the patient had as documented above. - Vitals & Intake/Output Vital Signs: Vital Signs Temperature 98.1 F 01/16/25 08:00 Pulse Rate 66 01/16/25 08:00 Respiratory Rate 20 01/16/25 08:00 Blood Pressure 123/63 01/16/25 08:00 O2 Sat by Pulse Oximetry 95 01/16/25 08:00 Intake & Output: Intake & Output 01/14/25 01/15/25 01/16/25 01/17/25 11:59 11:59 11:59 11:59 Intake Total 1005 3425 Output Total 600 1275 Balance 405 2150 Weight 58.4 kg 58.7 kg 59.1 kg - Lab Result Diagrams: 01/16/25 05:10 01/16/25 05:10 Lab Results-Last 24 Hrs: Lab Results-Last 24 Hours 01/15/25 01/15/25 01/15/25 Range/Units 16:18 21:32 21:32 WBC (3.98-10.04) x10^3/uL RBC (3.93-5.22) x10^6/uL Hgb (11.2-15.7) g/dL Hct (34.1-44.9) % MCV (79.4-94.8) fL MCH (25.6-32.2) pg MCHC (32.2-35.5) g/dL RDW (11.7-14.4) % Plt Count (182-369) x10^3/uL MPV (9.4-12.3) fL Segmented Neutrophils (34.0-71.1) % Band Neutrophils (0.0-2.0) % Lymphocytes (Manual) (19.3-51.7) % Monocytes (Manual) (4.7-12.5) % Platelet Estimate (NORMAL) RBC Morphology Sodium (135-145) mmol/L Potassium (3.5-5.1) mmol/L Chloride (98-107) mmol/L Carbon Dioxide (22-30) mmol/L Anion Gap (5-15) MEQ/L BUN (7-17) mg/dL Creatinine (0.52-1.04) mg/dL Estimated GFR ML/MIN Glucose (74-106) mg/dL POC Glucometer 144 H 127 H 127 H (74 to 106) mg/dL Calcium (8.4-10.2) mg/dL Total Bilirubin (0.2-1.3) mg/dL AST (14-36) U/L ALT (0-35) U/L Alkaline Phosphatase (38-126) U/L Serum Total Protein (6.3-8.2) g/dL Albumin (3.5-5.0) g/dL 01/16/25 01/16/25 01/16/25 Range/Units 05:10 05:10 07:09 WBC 13.8 H (3.98-10.04) x10^3/uL RBC 2.96 L (3.93-5.22) x10^6/uL Hgb 9.2 L (11.2-15.7) g/dL Hct 28.9 L (34.1-44.9) % MCV 97.6 H (79.4-94.8) fL MCH 31.1 (25.6-32.2) pg MCHC 31.8 L (32.2-35.5) g/dL RDW 12.8 (11.7-14.4) % Plt Count 103 L (182-369) x10^3/uL MPV 11.1 (9.4-12.3) fL Segmented Neutrophils 85 H (34.0-71.1) % Band Neutrophils 2 (0.0-2.0) % Lymphocytes (Manual) 9 L (19.3-51.7) % Monocytes (Manual) 4 L (4.7-12.5) % Platelet Estimate NORMAL (NORMAL) RBC Morphology NORMAL Sodium 136 (135-145) mmol/L Potassium 4.1 (3.5-5.1) mmol/L Chloride 111 H (98-107) mmol/L Carbon Dioxide 19 L (22-30) mmol/L Anion Gap 11.1 (5-15) MEQ/L BUN 15 (7-17) mg/dL Creatinine 0.96 (0.52-1.04) mg/dL Estimated GFR 63.7 ML/MIN Glucose 102 (74-106) mg/dL POC Glucometer 94 (74 to 106) mg/dL Calcium 7.0 L (8.4-10.2) mg/dL Total Bilirubin 0.50 (0.2-1.3) mg/dL AST 27 (14-36) U/L ALT 15 (0-35) U/L Alkaline Phosphatase 52 (38-126) U/L Serum Total Protein 4.8 L (6.3-8.2) g/dL Albumin 2.6 L (3.5-5.0) g/dL 01/16/25 Range/Units 11:16 WBC (3.98-10.04) x10^3/uL RBC (3.93-5.22) x10^6/uL Hgb (11.2-15.7) g/dL Hct (34.1-44.9) % MCV (79.4-94.8) fL MCH (25.6-32.2) pg MCHC (32.2-35.5) g/dL RDW (11.7-14.4) % Plt Count (182-369) x10^3/uL MPV (9.4-12.3) fL Segmented Neutrophils (34.0-71.1) % Band Neutrophils (0.0-2.0) % Lymphocytes (Manual) (19.3-51.7) % Monocytes (Manual) (4.7-12.5) % Platelet Estimate (NORMAL) RBC Morphology Sodium (135-145) mmol/L Potassium (3.5-5.1) mmol/L Chloride (98-107) mmol/L Carbon Dioxide (22-30) mmol/L Anion Gap (5-15) MEQ/L BUN (7-17) mg/dL Creatinine (0.52-1.04) mg/dL Estimated GFR ML/MIN Glucose (74-106) mg/dL POC Glucometer 103 (74 to 106) mg/dL Calcium (8.4-10.2) mg/dL Total Bilirubin (0.2-1.3) mg/dL AST (14-36) U/L ALT (0-35) U/L Alkaline Phosphatase (38-126) U/L Serum Total Protein (6.3-8.2) g/dL Albumin (3.5-5.0) g/dL Micro Results-Entire Visit: Microbiology 01/14/25 15:50 Gram Stain - Final Sputum - Expectorant Sputum Culture - Preliminary POSSIBLE HAEMOPHILUS SPECIES. SENT TO REFERENCE LAB FOR IDENTIFICATION FINAL REPORT TO FOLLOW 01/14/25 11:10 Blood Culture - Preliminary Blood 01/14/25 11:20 Blood Culture - Preliminary Blood 01/14/25 15:50 Ova and Parasite Result 1 - Final Stool Not Reportable Ova and Parasite Result 2 - Final Not Reportable Ova and Parasite Result 3 - Final Not Reportable Ova and Parasite Result 4 - Final Not Reportable Antimicrobic Susceptibility - Final Not Reportable Accuchecks Date 01/16/25 Date 01/15/25 Date 01/15/25 Time 21:30 Time 16:44 - Radiology Exams Ordered Rad Exams-Entire Visit: Radiology Procedures Category Date Time Status CHEST 2 VIEWS (PA AND LAT) Routine Exams 01/16/25 08:00 Completed PULMONARY PERF PARTICULATE [NUCMED] Routine Exams 01/16/25 08:00 Completed - Procedures and Test Procedures and Tests throughout Hospitalization: Therapy Orders & Screens 01/14/25 13:57 EKG REPEAT IN AM Comment: Oxygen Nasal Cannula 2 lpm Comment: Respiratory Therapy Consult ONCE Comment: Reason For Exam: 01/14/25 16:13 Respiratory Therapy Assessment DAILY Comment: Diagnosis: FLUA/Hypoxia 01/16/25 09:19 Qualify for Home Oxygen TODAY Comment: Diagnosis: FLUA/Hypoxia Discharge Exam General Appearance: no apparent distress Neurologic Exam: alert, oriented x 3, cooperative Eye Exam: PERRL Ears, Nose, Throat Exam: normal ENT inspection Neck Exam: normal inspection Respiratory Exam: diminished breath sounds, wheezing Cardiovascular Exam: regular rate/rhythm, normal heart sounds Gastrointestinal/Abdomen Exam: soft, normal bowel sounds Pelvic Exam: deferred Rectal Exam: deferred Back Exam: normal inspection Extremity Exam: normal inspection Skin Exam: normal color Final Diagnosis/Problem List - Final Discharge Diagnosis/Problem (1) Acute respiratory failure with hypoxia Current Visit: Yes Status: Acute Code(s): J96.01 - ACUTE RESPIRATORY FAILURE WITH HYPOXIA (2) Influenza A H1N1 infection Current Visit: Yes Status: Acute Code(s): J10.1 - FLU DUE TO OTH IDENT INFLUENZA VIRUS W OTH RESP MANIFEST (3) COPD exacerbation Current Visit: Yes Status: Acute Code(s): J44.1 - CHRONIC OBSTRUCTIVE PULMONARY DISEASE W (ACUTE) EXACERBATION (4) CAD (coronary artery disease) Current Visit: Yes Status: Chronic Code(s): I25.10 - ATHSCL HEART DISEASE OF [place] CORONARY ARTERY W/O ANG PCTRS (5) Type 2 diabetes mellitus Current Visit: Yes Status: Chronic (6) HLD (hyperlipidemia) Current Visit: Yes Status: Chronic Code(s): E78.5 - HYPERLIPIDEMIA, UNSPECIFIED (7) GERD (gastroesophageal reflux disease) Current Visit: Yes Status: Chronic Code(s): K21.9 - GASTRO-ESOPHAGEAL REFLUX DISEASE WITHOUT ESOPHAGITIS (8) SUSAN (acute kidney injury) Current Visit: No Status: Chronic Code(s): N17.9 - ACUTE KIDNEY FAILURE, UNSPECIFIED (9) Hypertension Current Visit: No Status: Chronic Code(s): I10 - ESSENTIAL (PRIMARY) HYPERTENSION (10) Nausea and vomiting Current Visit: Yes Status: Resolved Code(s): R11.2 - NAUSEA WITH VOMITING, UNSPECIFIED (11) Diarrhea Current Visit: Yes Status: Resolved Code(s): R19.7 - DIARRHEA, UNSPECIFIED (12) Hypothyroid Current Visit: No Status: Chronic Code(s): E03.9 - HYPOTHYROIDISM, UNSPECIFIED (13) Pneumonia Current Visit: Yes Status: Acute Code(s): J18.9 - PNEUMONIA, UNSPECIFIED ORGANISM - Discharge Discharge Date: 01/16/25 Disposition: Home, Self-Care Condition: Stable Prescriptions: New Amox Tr/Potass Clav. 875 mg [Augmentin 875-125 Tablet] 875 mg PO BID 10 Days #20 tablet Prednisone 20 mg [Deltasone 20 mg] 20 mg PO BID 5 Days #10 tablet Albuterol/Ipratropium 3ml Neb* [DUONEB 0.5-3 MG/3 ml Neb] 3 ml IH Q6H PRN 30 Days #120 amp PRN Reason: Shortness Of Breath/Wheezing Guaifenesin/Codeine 5 ml [Robitussin AC Syrup Unit Dose Cup] 10 ml PO Q4H PRN PRN 30 Days #420 ml PRN Reason: Cough Continue Atorvastatin Calcium [Lipitor 40Mg] 80 mg PO HS Trazodone HCl 50 mg [Desyrel 50 mg] 150 mg PO HS Levothyroxine Sodium 75 Mcg [Synthroid 75 Mcg] 75 mcg PO DAILY Empagliflozin [Jardiance] 25 mg PO DAILY Carvedilol [Coreg ] 6.25 mg PO BID Valsartan [Diovan] 320 mg PO DAILY Clopidogrel Bisulfate [PLAVIX Tablet] 75 mg PO DAILY Insulin Glargine [Lantus Insulin] 30 units SQ HS Discontinued Benzonatate 100 mg PO TID PRN PRN Reason: Cough Instructions: Flu in adults - Discharge instructions, Oxygen therapy at home Additional Instructions: WEAR 2L/NC AT ALL TIMES AT HOME CALL [facility] AT [phone] WHEN YOU LEAVE [facility] SO THEY CAN DELIVER YOUR HOME OXYGEN CONCENTRATOR NEBULIZER MACHINE ALSO ORDERED THRU [facility]- THEY WILL DELIVER THIS TO YOUR HOME WITH YOUR HOME OXYGEN CONCENTRATOR Follow up with: FARHANA ARMENTA [Primary Care Provider] - 01/21/25 2:00 pm Forms: Discharge Instructions
[2025-01-16 12:52] VITALS: BP 170/78; PULSE 62; RESP 22; TEMP 97.1; O2SAT 98
== END 2025-01-16 13:27 | disposition home or self-care (01) ==
LOC: ED 10:33 → MED SURG 13:55
PROVIDERS: ADMIT Internal Medicine; ATTEND Internal Medicine
DX: J96.01 Acute respiratory failure with hypoxia (principal); J10.1 Influenza due to other identified influenza virus with other respiratory manifestations; J44.1 Chronic obstructive pulmonary disease with (acute) exacerbation; I25.10 Atherosclerotic heart disease of native coronary artery without angina pectoris; E11.9 Type 2 diabetes mellitus without complications; E78.5 Hyperlipidemia, unspecified; K21.9 Gastro-esophageal reflux disease without esophagitis; N17.9 Acute kidney failure, unspecified; I10 Essential (primary) hypertension; R11.2 Nausea with vomiting, unspecified; R19.7 Diarrhea, unspecified; E03.9 Hypothyroidism, unspecified; J18.9 Pneumonia, unspecified organism; I25.2 Old myocardial infarction; Z79.01 Long term (current) use of anticoagulants; Z79.899 Other long term (current) drug therapy; Z86.73 Personal history of transient ischemic attack (TIA), and cerebral infarction without residual deficits
CPT/HCPCS: 0241U; 36415; 71045; 71046; 78580; 80053; 81001; 82947; 83036; 83605; 83735; 83880; 84443; 84484; 85025; 85379; 87040; 87070; 87077; 87186; 87651; 93005; 93041; 94640; 94760; 99291; A9540; Q3014; 93268; 99285; J0456; J0696; A9270-GY; G0378

== ENCOUNTER 2025-09-17 13:30 | Day surgery (SDC) | payer MEDICARE ==
[2025-09-17] MEDS ORDERED: BUPIVACAINE 0.5% VIAL IJ ONE (13:31)
[2025-09-17] MEDS ORDERED: methylPREDNISolone acetate IM ONE (13:31)
[2025-09-17] MEDS ORDERED: LIDOCAINE HCL 1% 50 MG/5 ML VL IJ ONE (13:31)
--- NOTE | 2025-09-17 20:29 | XRAY ---
Indication: Right shoulder, subacromial bursa, and biceps tendon injection. Intraoperative fluoroscopy provided for 22 seconds. 3 digital spot image submitted for interpretation demonstrates needle tip projecting over right glenohumeral joint superiorly. 2nd needle tip subacromial. Small amount of contrast injected for needle tip placement. Correlate with intraoperative findings/report.
--- NOTE | 2025-09-18 10:08 | XRAY ---
22 seconds of fluoroscopy was used in surgery for a right intra-articular shoulder, subacromial bursa, and bicipital tendon injection.
== END 2025-09-17 17:58 | disposition home or self-care (01) ==
LOC: SDC-PAIN 13:30
PROVIDERS: ATTEND Psychiatry & Neurology Pain Medicine
DX: M19.011 Primary osteoarthritis, right shoulder (principal); M75.21 Bicipital tendinitis, right shoulder; E11.9 Type 2 diabetes mellitus without complications